=== PATIENT | female | born 1990 | race Caucasian/White ===

== ENCOUNTER 2022-10-29 10:26 | Inpatient (IN) | payer BC, SELFPAY ==
[2022-10-29 11:02] VITALS: BP 130/91; PULSE 95; RESP 18; TEMP 37; O2SAT 100
[2022-10-29 11:03] VITALS: BMI 26.5
[2022-10-29] MEDS: acetaminophen 325 mg Tablet 650 MG PO ×2 (11:43→16:54)
[2022-10-29] MEDS: hyDROXYzine 25 mg Capsule 50 MG PO ×2 (11:43→16:54)
[2022-10-29 14:00] VITALS: BP 118/81; PULSE 86; RESP 16; TEMP 36.8; O2SAT 98
[2022-10-29] MEDS: OLANZapine 5 mg ODT PO ×2 (16:54→23:22)
[2022-10-29] MEDS: gabapentin 300 mg Capsule PO (17:44)
[2022-10-29 20:07] VITALS: BP 126/84; PULSE 106; RESP 18; TEMP 36.8; O2SAT 100
[2022-10-29] MEDS: ibuprofen 600 mg Tablet PO (21:09)
[2022-10-29] MEDS: methocarbamol 500 mg Tablet PO (21:09)
--- NOTE | 2022-10-29 23:23 | PC.NURSE ---
Pt put director semiconductor light stating I'm seeing people climbing out of the ceiling . Pt requests medication to help with hallucinations. PRN zyprexa administered per orders.
[2022-10-30] MEDS: ibuprofen 600 mg Tablet PO (04:48)
[2022-10-30] MEDS: methocarbamol 500 mg Tablet PO ×2 (04:48→15:57)
[2022-10-30 06:00] VITALS: BP 121/84; PULSE 84; RESP 15; O2SAT 100
[2022-10-30] MEDS: thiamine 100 mg Tablet PO (09:01)
[2022-10-30] MEDS: gabapentin 300 mg Capsule PO ×2 (09:01→17:13)
[2022-10-30] MEDS: folic acid 1 mg Tablet PO (09:02)
[2022-10-30] MEDS: pantoprazole DR 40 mg Tablet PO (09:02)
[2022-10-30] MEDS: fluoxetine 20 mg Capsule PO (09:02)
[2022-10-30] MEDS: amlodipine 5 mg Tablet PO (09:02)
[2022-10-30] MEDS: multivitamin therapeutic Tablet 1 TAB PO (09:03)
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
[2022-10-30 10:12] LABS: Hematocrit 35.8 % (37.0-47.0); Hemoglobin 12.6 g/dL (11.5-15.3); Mean Corpuscular HGB Conc 35.2 g/dL (30.0-36.0); Mean Corpuscular Hemoglobin 30.4 pg (28.0-34.0); Mean Corpuscular Volume 86.5 fl (81-99); Mean Platelet Volume 10.5 fL (7.4-10.4); Platelet Count 251 10^3/cmm (130-400); Red Blood Count 4.14 10^6/uL (4.1-5.3); Red Cell Distribution Width 13.3 % (12.1-15.1); White Blood Count 7.2 10^3/uL (4.0-10.0)
[2022-10-30 10:36] LABS: Alanine Aminotransferase 13 U/L (0-33); Albumin Level 4.3 g/dL (3.5-5.2); Alkaline Phosphatase 46 U/L (35-105); Amylase 24 U/L (28-100); Anion Gap 17.3 (5-19); Aspartate Amino Transferase 14 U/L (0-32); Blood Urea Nitrogen 16 mg/dL (6-20); Calcium 9.4 mg/dL (8.5-10.5); Carbon Dioxide 26 mmol/L (22-29); Chloride 101 mmol/L (98-107); Globulin 1.9 g/dL (1.3-4.6); Glomerular Filtration Rate 98.3 mL/min (90-130); Glucose 119 mg/dL (65-115); Lipase 20 U/L (13-60); Osmolality Calculated 294 mOsm/kg (285-295); Potassium 3.3 mmol/L (3.5-5.1); Sodium 141 mmol/L (136-145); Total Bilirubin 0.5 mg/dL (0.15-1.2); Total Protein 6.2 g/dL (6.6-8.7)
[2022-10-30 10:48] LABS: Absolute Eosinophils 0.2 10^3/cmm (0.0-0.7); Absolute Neutrophil 4.3 10^3/cmm (1.4-6.5); Absolute Segmented Neutrophil 4.3 10/cmm (1.6-7.1); Eosinophils 3 %; Lymphocytes 31 %; Lymphocytes Absolute 2.2 10^3/cmm (1.2-3.4); Monocytes Absolute 0.4 10^3/cmm (0.1-0.6); Platelet Estimate Normal (Normal); Segmented Neutrophils 60 %; Total Cells Counted 100 (0-100)
[2022-10-30] MEDS: escitalopram 10 mg Tablet PO (12:01)
[2022-10-30] MEDS: nicotine 2 mg Gum BUCCAL (13:36)
[2022-10-30] MEDS: OLANZapine 5 mg ODT PO (13:36)
[2022-10-30 13:54] VITALS: BP 135/104; PULSE 90; RESP 18; TEMP 36.9; O2SAT 99
[2022-10-30] MEDS: hyDROXYzine 25 mg Capsule 50 MG PO (15:57)
[2022-10-30] MEDS: nicotine 4 mg lozenge MUCOUS MEM (17:32)
[2022-10-30] MEDS: trazodone 50 mg Tablet PO ×2 (20:03→21:14)
[2022-10-30 20:13] VITALS: BP 125/81; PULSE 78; RESP 16; TEMP 36.7; O2SAT 99
[2022-10-31] MEDS: methocarbamol 500 mg Tablet PO ×3 (00:29→12:36)
[2022-10-31] MEDS: hyDROXYzine 25 mg Capsule 50 MG PO ×2 (00:29→08:58)
[2022-10-31] MEDS: ibuprofen 600 mg Tablet PO ×3 (00:29→12:36)
[2022-10-31] MEDS: acetaminophen 325 mg Tablet 650 MG PO ×2 (01:50→08:57)
--- NOTE | 2022-10-31 01:58 | PC.NURSE ---
Pt con't to c/o worsening abd pain at this time. PRN apap administered d/t pt already receiving ibu and robaxin earlier, and it is not time for administration yet. Pt referred to physician for request of stronger pain medication. Awaiting orders. WMP administered to assist w/pain relief.
[2022-10-31 06:00] VITALS: BP 120/90; PULSE 78; RESP 17; O2SAT 99
--- NOTE | 2022-10-31 07:12 | P.NPUPN_ITS ---
Subjective NPU Subjective: Patient presented today reporting that he is doing a little better with the Lexapro. She reports she is having some pain issues but reported that she is hopeful that when he stopped his oxycodone in couple of days that it will help. She reports a plan to go to a rehab after discharge. We discussed bringing that to the social work team's attention so that they assist in a easy transition to inpatient rehab. Mental Status Exam MSE Comments: This is a well-nourished well-developed white female, in hospital scrubs, with limited grooming and adequate eye contact. No abnormal movements, except for mild psychomotor retardation. Cooperative with exam in mild distress. Speech was normal rate and volume. Mood described as depressed; affect congruent. Thought process, organized. Thought content: patient denied any suicidal or homicidal ideation, there were no delusions reported or noted, patient denied any auditory or visual hallucinations. Attention, concentration, and memory appeared intact, but none were formally tested. Alert and oriented times three. Insight and judgment are limited. Impulse control is limited. Vitals/I&O/Wt Last Vital Signs Temp 98.1 F 10/30/22 20:13 Pulse 78 10/31/22 06:00 Resp 17 10/31/22 06:00 BP 120/90 10/31/22 06:00 Pulse Ox 99 10/31/22 06:00 O2 Del Method Room Air 10/31/22 06:00 Weight last 48 hrs Weight 65.771 kg Data NPU 10/30/22 10:00 10/30/22 10:00 A&P Assessment and plan (1) Major depressive disorder, recurrent: (2) Alcohol use disorder, severe, dependence: (3) Opioid use disorder, severe, dependence: Plan This is a 32-year-old, white female, with genetic loading for mental health and addiction issues, with a long history of mental health issues with limited mental health treatment, active drug and alcohol issues with history of significant alcohol use disorder and other addiction current active opiate addiction but reportedly 4 days sober here because of suicidal thoughts, reporting she is open to starting medication. 1. Continue current medication. 2. Started Lexapro 10 mg p.o. daily. 3. Encourage individual, group, and milieu therapy. 4. Continue q-15-minute checks for safety. 5. Encourage sober living treatment after discharge at the highest level of care to which she is willing to commit. We will consider inelke tiating Suboxone in 2 days or so if she is still interested for opiate addiction as that will put her at the seventh day of sobriety. Involuntary Hold Information 96 Hour Hold: 96 Hour Involuntary Admission: No Attestations NPU Medical Necessity Statement*: Inpatient hospitalization is medically necessary and the clinically appropriate intervention, at this time. We will monitor medications and make changes as indicated. Likely length of stay is 2-4 days. Coding Level of Care Code Acute Code for g [facility] Diagnoses Major depressive disorder, recurrent F33.9 Alcohol use disorder, severe, dependence F10.20 Opioid use disorder, severe, dependence F11.20
[2022-10-31] MEDS: nicotine 21 mg Patch 1 PATCH TRANSDERMA (07:18)
[2022-10-31] MEDS: pantoprazole DR 40 mg Tablet PO (08:31)
[2022-10-31] MEDS: multivitamin therapeutic Tablet 1 TAB PO (08:31)
[2022-10-31] MEDS: escitalopram 10 mg Tablet PO (08:31)
[2022-10-31] MEDS: fluoxetine 20 mg Capsule PO (08:31)
[2022-10-31] MEDS: thiamine 100 mg Tablet PO (08:32)
[2022-10-31] MEDS: amlodipine 5 mg Tablet PO (08:32)
[2022-10-31] MEDS: gabapentin 300 mg Capsule PO ×2 (08:32→17:57)
[2022-10-31] MEDS: folic acid 1 mg Tablet PO (08:32)
[2022-10-31] MEDS: OLANZapine 5 mg ODT PO ×3 (08:58→23:31)
[2022-10-31] MEDS: ondansetron 4 MG Tablet PO (08:58)
[2022-10-31 14:00] VITALS: BP 116/80; PULSE 88; RESP 16; TEMP 36.7; O2SAT 98
[2022-10-31] MEDS: haloperidol 5 mg Tablet PO (15:07)
[2022-10-31 19:28] VITALS: BP 133/91; PULSE 90; RESP 18; TEMP 36.9; O2SAT 97
[2022-10-31] MEDS: trazodone 50 mg Tablet PO (20:41)
[2022-10-31] MEDS: sennosides 8.6 mg Tablet 17.2 MG PO (20:41)
[2022-11-01] MEDS: haloperidol 5 mg Tablet PO (02:15)
[2022-11-01] MEDS: trazodone 50 mg Tablet PO ×2 (03:11→20:37)
[2022-11-01 06:00] VITALS: BP 122/83; PULSE 90; RESP 16; TEMP 36.8; O2SAT 99
[2022-11-01] MEDS: fluoxetine 20 mg Capsule PO (07:47)
[2022-11-01] MEDS: gabapentin 300 mg Capsule PO ×2 (07:47→20:37)
[2022-11-01] MEDS: methocarbamol 500 mg Tablet PO ×2 (07:47→14:40)
[2022-11-01] MEDS: escitalopram 10 mg Tablet PO (07:47)
[2022-11-01] MEDS: pantoprazole DR 40 mg Tablet PO (07:48)
[2022-11-01] MEDS: multivitamin therapeutic Tablet 1 TAB PO (07:48)
[2022-11-01] MEDS: amlodipine 5 mg Tablet PO (07:48)
[2022-11-01] MEDS: folic acid 1 mg Tablet PO (07:48)
[2022-11-01] MEDS: thiamine 100 mg Tablet PO (07:49)
--- NOTE | 2022-11-01 07:55 | PC.NURSE ---
PRN ROBAXIN 500 MG GIVEN PO PER PT C/O SPASMS
--- NOTE | 2022-11-01 07:55 | PC.NURSE ---
SHIFT ASSESSMENT STATED SHE IS HEARING AND SEEING THINGS, IT GETS WORSE WHEN I'M DETOXING DOES NOT APPEAR TO BE RESPONDING TO ANY INTERNAL STIMULI AT THIS TIME, CALM & PLEASANT WITH STAFF INTERACTION, WANTS TO SPEAK TO PHYSICIAN ABOUT GETTING MORE SLEEP MEDS BECAUSE SHE STATED THE TRAZODONE ONLY WORKS FOR A FEW HOURS THEN SHE'S AWAKE AGAIN MOST OF THE NIGHT.
[2022-11-01] MEDS: hyDROXYzine 25 mg Capsule 50 MG PO ×3 (08:38→20:37)
[2022-11-01] MEDS: nicotine 21 mg Patch 1 PATCH TRANSDERMA (08:38)
--- NOTE | 2022-11-01 08:40 | PC.NURSE ---
PRN VISTARIL 50 MG GIVEN PO PER PT C/O STATED ANXIETY
--- NOTE | 2022-11-01 12:51 | P.NPUPN_ITS ---
Subjective NPU Subjective: Sherry is a 32-year-old white female with alcohol dependence and opiate dependence along with depression admitted with suicidal ideation and command auditory hallucinations. She continues to report that she is hearing voices. She also reported seeing ghosts out of the corner of her eye. She reported having the symptoms for the past few weeks. She had reported a greater than 10- year use of opiates but reports that the use of opiates had really been magnified over the past 3 years that she begun to use OxyContin's intranasally. She had reported being hopeful about going to a rehabilitation facility as well. She reported no previous history of treatment for her alcohol use either and stated that she had been drinking approximately 2 pints of alcohol on a daily basis. She did not report any withdrawal symptoms here from alcohol. She had reported that she continued to have suicidal thoughts. She had also reported that she could continue to to see demons in her room at night. She had reported sleep continuity disruption last night. Mental Status Exam MSE Comments: This is a well-nourished well-developed white female, in hospital scrubs, with limited grooming and adequate eye contact. No abnormal movements, except for mild psychomotor retardation. Cooperative with exam in mild distress. Speech was normal rate and volume. Mood described as depressed; affect congruent. Thought process, organized. Thought content: She endorsed suicidal ideation and denied any homicidal ideation. She had endorsed hearing a voice and seeing ghosts but did not during interview appear to be responding internal stimuli. There is no clear evidence of delusional thinking. Attention, concentration, and memory appeared intact, but none were formally tested. Alert and oriented times three. Insight and judgment are limited. Impulse control is limited. Vitals/I&O/Wt Last Vital Signs Temp 98.3 F 11/01/22 06:00 Pulse 90 11/01/22 06:00 Resp 16 11/01/22 06:00 BP 122/83 11/01/22 06:00 Pulse Ox 99 11/01/22 06:00 O2 Del Method Room Air 10/31/22 06:00 Weight last 48 hrs Weight 70.216 kg Data NPU 10/30/22 10:00 10/30/22 10:00 A&P Assessment and plan (1) Major depressive disorder, recurrent: (2) Alcohol use disorder, severe, dependence: (3) Opioid use disorder, severe, dependence: Plan This is a 32-year-old, white female, with genetic loading for mental health and addiction issues, with a long history of mental health issues with limited mental health treatment, active drug and alcohol issues with history of significant alcohol use disorder and other addiction current active opiate addiction but reportedly 4 days sober here because of suicidal thoughts, reporting she is open to starting medication. 1. Continue current medication. 2. Continue Lexapro 10 mg p.o. daily. 3. Encourage individual, group, and milieu therapy. 4. Continue q-15-minute checks for safety. 5. Encourage sober living treatment after discharge at the highest level of care to which she is willing to commit. Add Suboxone 8mg/day, and begin Abilify 5mg daily to target psychosis as adjunctively for MDD. Involuntary Hold Information 96 Hour Hold: 96 Hour Involuntary Admission: No Attestations NPU Medical Necessity Statement*: Inpatient hospitalization is medically necessary and the clinically appropriate intervention, at this time. We will monitor medications and make changes as indicated. Likely length of stay is 3-5 days. Coding Level of Care Code Acute Code for [facility] Fwd Diagnoses Major depressive disorder, recurrent F33.9 Alcohol use disorder, severe, dependence F10.20 Opioid use disorder, severe, dependence F11.20
[2022-11-01] MEDS: ARIPiprazole 2 mg Tablet PO (13:06)
[2022-11-01 13:51] VITALS: BP 132/87; PULSE 90; RESP 17; TEMP 36.4; O2SAT 99
[2022-11-01] MEDS: acetaminophen 325 mg Tablet 650 MG PO (18:12)
[2022-11-01] MEDS: sennosides 8.6 mg Tablet 17.2 MG PO (20:37)
[2022-11-01] MEDS: buprenorphine-naloxone 4-1 mg Film 1 EACH SUBLINGUAL (20:37)
[2022-11-01 21:53] VITALS: BP 138/93; PULSE 90; RESP 18; TEMP 36.4; O2SAT 97
--- NOTE | 2022-11-02 02:15 | PC.NURSE ---
PT CAME TO DESK STATING SHE HAS NOT URINATED ALL DAY. THIS NURSE BLADDER SCANNED PT WITH THE RESULT OF 334ML SHOWN. PT GIVEN A URINE SPECIMEN CUP AND ASKED THAT WHEN SHE DOES FINALLY GO, TO GIVE US A SAMPLE SO WE CAN TEST FOR A UTI. PT CONSENTED.
[2022-11-02] MEDS: hyDROXYzine 25 mg Capsule 50 MG PO ×2 (04:06→13:36)
--- NOTE | 2022-11-02 04:12 | PC.NURSE ---
PT CAME TO DESK STATING I STILL CAN'T PEE AND IT'S STARTING TO REALLY HURT . ATTEMPT TO CALL DR ALFONSO TO GET AN ORDER FOR STRAIGHT CATH NOT SUCCESSFUL. CALL PLACED TO HOSPITALIST GRAPHIC DESIGN SPECIALIST, DR WLASH. ORDER FOR A ONE TIME STRAIGHT CATH ORDER RECEIVED.
--- NOTE | 2022-11-02 04:57 | PC.NURSE ---
THIS NURSE AND Martín RN, USING ASEPTIC TECHNIQUE, USING 16GAGE MONACO CATH, STRAIGHT CATHED THIS PT WITHOUT DIFFICULTY. 775ML CLEAR URINE WAS OBTAINED. UA SPECIMEN SENT TO LAB.
[2022-11-02 04:58] LABS: Add Urine Microscopic? NO; Bilirubin Urine Neg (Negative); Blood Urine Neg (Negative); Glucose Urine UA Norm (Normal); Ketones Urine Negative (Negative); Leukocyte Esterase Urine Negative (Negative); Nitrate Urine Negative (Negative); Protein Urine Neg (Negative); Urine Appearance Clear (CLEAR); Urine Color Yellow (Yellow); Urobilinogen Urine Norm (Negative); pH Urine 7 (5-7)
[2022-11-02 05:00] LABS: Charge for UA Resulting for Rev
[2022-11-02 06:00] VITALS: RESP 16
[2022-11-02] MEDS: nicotine 21 mg Patch 1 PATCH TRANSDERMA (08:27)
[2022-11-02] MEDS: gabapentin 300 mg Capsule PO ×2 (08:28→20:26)
[2022-11-02] MEDS: amlodipine 5 mg Tablet PO (08:28)
[2022-11-02] MEDS: ARIPiprazole 2 mg Tablet PO (08:28)
[2022-11-02] MEDS: methocarbamol 500 mg Tablet PO ×2 (08:28→20:28)
[2022-11-02] MEDS: folic acid 1 mg Tablet PO (08:28)
[2022-11-02] MEDS: buprenorphine-naloxone 4-1 mg Film 1 EACH SUBLINGUAL (08:29)
[2022-11-02] MEDS: thiamine 100 mg Tablet PO (08:29)
[2022-11-02] MEDS: multivitamin therapeutic Tablet 1 TAB PO (08:29)
[2022-11-02] MEDS: fluoxetine 20 mg Capsule PO (08:29)
[2022-11-02] MEDS: pantoprazole DR 40 mg Tablet PO (08:29)
[2022-11-02] MEDS: escitalopram 10 mg Tablet PO (08:29)
--- NOTE | 2022-11-02 08:47 | PC.NURSE ---
bladder scan 204 ml urine from scan, pt voiced she is still having hesitancy urinating. will cont to monitor & alert physician
--- NOTE | 2022-11-02 09:10 | PC.NURSE ---
shift assessment stated she was having thoughts of self harm, no plan, stated she also having hallucinations off and on, but they aren't as bad as they usually are pleasant with staff interaction, med compliant. staff educated patient that she would be checked on every 15 minutes or less while staff did mandatory rounding, alerted patient to let nursing staff know if her thoughts to self harm increased or she came up with a plan on how to harm herself so staff could intervene. patient agreed to contract for safety
--- NOTE | 2022-11-02 12:04 | W.PM.NPUPNS ---
Subjective NPU Subjective: Sherry is a 32-year-old white female with alcohol dependence and opiate dependence along with depression admitted with suicidal ideation and command auditory hallucinations. The patient had complained of severe urinary retention that required catheterization which produced 750 mL of urine. She had reported having urinary urgency but stated that she was unable to urinate. She had also complained of chronic constipation. She had reported having a small bowel movement yesterday. She continues to report that she is seeing ghosts. She reported having the symptoms for the past few weeks. She reported feeling better with the initiation of Suboxone. She had continue to report depressed mood. She had stated that she had hopes of going to a rehabilitation program when stabilized. Staff notes patient was pleasant and cooperative on the milieu. Mental Status Exam MSE Comments: This is a well-nourished well-developed white female, in hospital scrubs, with limited grooming and adequate eye contact. No abnormal movements, except for mild psychomotor retardation. Cooperative with exam in significant distress. Speech was normal rate and volume. Mood described as depressed; affect congruent. Thought process, organized. Thought content: She endorsed suicidal ideation and denied any homicidal ideation. She had endorsed seeing ghosts but did not during interview appear to be responding internal stimuli. There is no clear evidence of delusional thinking. Attention, concentration, and memory appeared intact, but none were formally tested. Alert and oriented times three. Insight and judgment are limited. Impulse control is limited. Vitals/I&O/Wt Last Vital Signs Temp 97.6 F 11/01/22 21:53 Pulse 90 11/01/22 21:53 Resp 16 11/02/22 06:00 BP 138/93 11/01/22 21:53 Pulse Ox 97 11/01/22 21:53 O2 Del Method Room Air 11/01/22 21:53 Weight last 48 hrs Weight 70.216 kg Data NPU 10/30/22 10:00 10/30/22 10:00 A&P Assessment and plan (1) Major depressive disorder, recurrent: (2) Alcohol use disorder, severe, dependence: (3) Opioid use disorder, severe, dependence: Plan This is a 32-year-old, white female, with genetic loading for mental health and addiction issues, with a long history of mental health issues with limited mental health treatment, active drug and alcohol issues with history of significant alcohol use disorder and other addiction current active opiate addiction but reportedly 4 days sober here because of suicidal thoughts, reporting she is open to starting medication. 1. Continue Abilify 2mg daily, consult medicine after completion of KUB, as constipation may be cause of urinary retention. Catherization to relieve urinary retention. 2. Continue Lexapro 10 mg p.o. daily. 3. Encourage individual, group, and milieu therapy. 4. Continue q-15-minute checks for safety. 5. Encourage sober living treatment after discharge at the highest level of care to which she is willing to commit. Continue Suboxone 8mg/day, and continue Abilify 2mg daily to target psychosis as adjunctively for MDD. Involuntary Hold Information 96 Hour Hold: 96 Hour Involuntary Admission: No Attestations NPU Medical Necessity Statement*: Inpatient hospitalization is medically necessary and the clinically appropriate intervention, at this time. We will monitor medications and make changes as indicated. Likely length of stay is 3-5 days. Coding Level of Care Code Acute Code for [facility] Fwd Diagnoses Major depressive disorder, recurrent F33.9 Alcohol use disorder, severe, dependence F10.20 Opioid use disorder, severe, dependence F11.20
--- NOTE | 2022-11-02 12:07 | XRR_ITS ---
PROCEDURE INFORMATION: Exam: XR Abdomen Exam date and time: 11/02/2022 1:05 PM Age: 32 years old Clinical indication: Condition or disease; Kidney or ureter condition; Other: Urinary retention; Prior surgery; Surgery date: 6+ months; Surgery type: Choley TECHNIQUE: Imaging protocol: Radiologic exam of the abdomen. Views: Frontal supine view of the abdomen. 1 View. COMPARISON: No relevant prior studies available. FINDINGS: Gastrointestinal tract: Moderate fecal burden. No bowel dilation. Bones/joints: Unremarkable. XR/XR KUB portable [id number] IMPRESSION: No acute findings.
[2022-11-02 12:48] LABS: HCG Qualitative Urine. Negative (Negative)
--- NOTE | 2022-11-02 13:37 | PC.NURSE ---
PRN VISTARIL 50 MG GIVEN PO PER PT C/O STATED ANXIETY
[2022-11-02 14:00] VITALS: BP 117/73; PULSE 80; RESP 16; TEMP 36.6; O2SAT 99
[2022-11-02] MEDS: lactulose oral liq 20 gm/30 mL UDC PO ×4 (16:18→23:52)
--- NOTE | 2022-11-02 16:44 | PC.NURSE ---
BLADDER SCAN DONE PER PT REQUEST, [address] SANTOS NOTIFIED, NO NEW ORDERS CURRENTLY
[2022-11-02] MEDS: ibuprofen 600 mg Tablet PO (17:50)
--- NOTE | 2022-11-02 18:01 | PC.NURSE ---
voiced to staff she was able to pee a little had a big smile on her face, said she felt some relief after urinating
[2022-11-02 20:08] VITALS: BP 107/71; PULSE 82; RESP 18; TEMP 36.7; O2SAT 99
[2022-11-02] MEDS: trazodone 50 mg Tablet PO (20:26)
[2022-11-02] MEDS: sennosides 8.6 mg Tablet 17.2 MG PO (20:26)
[2022-11-03] MEDS: lactulose oral liq 20 gm/30 mL UDC PO ×2 (03:12→06:32)
--- NOTE | 2022-11-03 03:31 | PC.NURSE ---
PT CAME TO DESK REPORTING NOT BEING ABLE TO URINATE. DR ALFONSO CALLED, ONE TIME ORDER FOR BLADDER SCAN AND STRAIGHT CATH NOW. BLADDER SCAN RESULTED IN 519ML. AFTER HAND SANITIZING, THIS NURSE, USING ASEPTIC TECHNIQUE, PT WAS STRAIGHT CATHED WITH APPROXIMATELY 750ML OF YELLOW URINE OBTAINED WITHOUT DIFFICULTY USING A 14FR TANK RED CATHETER. PT TOLERATED PROCEDURE WELL, STATING FEELING MUCH RELIEF AND LESS PRESSURE.
[2022-11-03 06:00] VITALS: BP 131/92; PULSE 90; RESP 16; TEMP 36.8; O2SAT 100
--- NOTE | 2022-11-03 08:04 | PC.NURSE ---
PT STRAIGHT CATHED ON 11/02/22 AT 1330. ONE ATTEMPT WAS MADE. OUTPUT WAS 375ML.
[2022-11-03] MEDS: methocarbamol 500 mg Tablet PO ×2 (08:54→20:13)
[2022-11-03] MEDS: escitalopram 10 mg Tablet PO (08:54)
[2022-11-03] MEDS: gabapentin 300 mg Capsule PO ×2 (08:54→20:13)
[2022-11-03] MEDS: multivitamin therapeutic Tablet 1 TAB PO (08:54)
[2022-11-03] MEDS: amlodipine 5 mg Tablet PO (08:54)
[2022-11-03] MEDS: thiamine 100 mg Tablet PO (08:54)
[2022-11-03] MEDS: folic acid 1 mg Tablet PO (08:54)
[2022-11-03] MEDS: pantoprazole DR 40 mg Tablet PO (08:54)
[2022-11-03] MEDS: nicotine 21 mg Patch 1 PATCH TRANSDERMA (08:55)
[2022-11-03] MEDS: hyDROXYzine 25 mg Capsule 50 MG PO ×3 (08:57→20:13)
[2022-11-03] MEDS: tamsulosin 0.4 mg Capsule PO (10:31)
--- NOTE | 2022-11-03 13:40 | P.CONIM_ITS ---
Providers/Reason For Consult Consulting Physician/Specialty*: Frase/Hosptialist Reason for Consult*: urinary retention Requesting Physician: Dr Zamora Attending Physician: James Moore MD History of Present Illness History of Present Illness Sherry Rodriguez is a 32 year old female admitted to the neuro psychiatric unit on October 30. She had had depression associated with suicidal ideation related in part secondary to substance use. She has a history of irritable bowel syndrome, chronically associated with diarrhea. She had cholecystectomy at [facility] in [place] on October 20. After surgery she had more diarrhea than usual and this continued up until the time she presented here. She started to have issues with constipation and subsequently ox so developed urinary retention. She has had 3 episodes of bladder scanning leading to straight catheterization and Parsons catheter was maintained after that third time. She had 2 episodes of approximately a liter of urinary retention with the most recent being around 450 mL urinary retention. She received 1 dose of Flomax and hospitalist were called for consultation due to the urinary retention. She had brief sensation of pain with urinating prior to the onset of urinary retention and has been uncomfortable since then because of the retention. No fevers. No nausea or vomiting. She has some abdominal discomfort and noticed a knot-like area in the right of the suprapubic region. She has had laxatives today including lactulose and had large-volume more formed stool several times. Feels like she is lost several pounds. She has never had issues with urinary retention before. Only new medications beyond some as needed's this hospital stay included initiation of Suboxone and Abilify. Both had been given x2 doses at lower range dosing. Menstrual periods are irregular, occuring every 3-4 months at baseline. Taking OCPs. Had a negative test at outside hospital prior to admission here. Had appropriate postoperative pain after cholecystectomy. Last hysteroscopy was in September of this year. No complaints of difficulty breathing. Review of Systems General: Reports: Other (ROS as per HPI or as noted here) Medications/Allergies Home Medications Medication Instructions Recorded Confirmed Last Taken Type amlodipine 5 mg tablet 5 mg PO DAILY 10/29/22 10/29/22 Unknown History fluoxetine 20 mg capsule 20 mg PO DAILY 10/29/22 10/29/22 Unknown History gabapentin 300 mg capsule 300 mg PO BID 10/29/22 10/29/22 Unknown History letrozole 2.5 mg tablet 2.5 mg PO DAILY 10/29/22 10/29/22 Unknown History methocarbamol 500 mg tablet 500 mg PO Q6H PRN Muscle Spasticity 10/29/22 10/29/22 Unknown History omeprazole 20 mg capsule,delayed 20 mg PO DAILY 10/29/22 10/29/22 Unknown History release Allergies Allergy/AdvReac Type Severity Reaction Status Date / Time No Known Allergies Allergy Verified 10/29/22 11:23 Current Medications Generic Name Dose Route Start Last Admin Trade Name Saadia PRN Reason Stop Dose Admin Acetaminophen 650 mg 10/29/22 11:01 11/01/22 18:12 Acetaminophen 325 Mg Tablet PO 650 mg Q4H PRN Administration MILD PAIN Amlodipine Besylate 5 mg 10/30/22 09:00 11/03/22 08:54 Amlodipine 5 Mg Tablet PO 5 mg DAILY SILVINA Administration Aripiprazole 2 mg 11/01/22 13:00 11/02/22 08:28 Aripiprazole 2 Mg Tablet PO 2 mg DAILY SILVINA Administration Buprenorphine/Naloxone 1 each 11/01/22 21:00 11/02/22 08:29 Buprenorphine-Naloxone 4-1 Mg Film SUBLINGUAL 1 each BID@0900,2100 SILVINA Administration Escitalopram Oxalate 10 mg 10/30/22 11:30 11/03/22 08:54 Escitalopram 10 Mg Tablet PO 10 mg DAILY SILVINA Administration Folic Acid 1 mg 10/30/22 09:00 11/03/22 08:54 Folic Acid 1 Mg Tablet PO 1 mg DAILY SILVINA Administration Gabapentin 300 mg 11/01/22 21:00 11/03/22 08:54 Gabapentin 300 Mg Capsule PO 300 mg 0900,2100 SILVINA Administration Haloperidol 5 mg 10/29/22 11:01 11/01/22 02:15 Haloperidol 5 Mg Tablet PO 5 mg Q4H PRN Administration AGITATION Hydroxyzine Pamoate 50 mg 10/29/22 11:01 11/03/22 08:57 Hydroxyzine 25 Mg Capsule PO 50 mg Q6H PRN Administration ANXIETY Ibuprofen 600 mg 10/29/22 20:34 11/02/22 17:50 Ibuprofen 600 Mg Tablet PO 600 mg Q6H PRN Administration MODERATE PAIN Methocarbamol 500 mg 10/29/22 11:35 11/03/22 08:54 Methocarbamol 500 Mg Tablet PO 500 mg Q6H PRN Administration Muscle Spasticity Multivitamins Therapeutic 1 tab 10/30/22 09:00 11/03/22 08:54 Multivitamin Therapeutic Tablet PO 1 tab DAILY SILVINA Administration Nicotine 1 patch 10/29/22 11:01 11/03/22 08:55 Nicotine 21 Mg Patch TRANSDERMA 1 patch DAILY PRN Administration NICOTINE WITHDRAWAL Nicotine Polacrilex 2 mg 10/29/22 11:01 10/30/22 13:36 Nicotine 2 Mg Gum BUCCAL 2 mg Q2H PRN Administration NICOTINE WITHDRAWAL Nicotine Polacrilex 4 mg 10/30/22 17:14 10/30/22 17:32 Nicotine 4 Mg Lozenge MUCOUS MEM 4 mg Q2H PRN Administration NICOTINE CRAVINGS Non-Formulary Medication 2.5 mg 10/30/22 09:00 11/03/22 09:36 Letrozole PO Not Given DAILY SILVINA Olanzapine 5 mg 10/29/22 11:01 10/31/22 23:31 Olanzapine 5 Mg Odt PO 5 mg Q4H PRN Administration Agitation/Psychosis Ondansetron HCl 4 mg 10/29/22 11:01 10/31/22 08:58 Ondansetron 4 Mg Tablet PO 4 mg Q6H PRN Administration NAUSEA AND VOMITING Pantoprazole Sodium 40 mg 10/30/22 09:00 11/03/22 08:[address] 40 Mg Tablet PO 40 mg DAILY SILVINA Administration Senna 17.2 mg 10/31/22 21:00 11/02/22 20:26 Sennosides 8.6 Mg Tablet PO 17.2 mg BEDTIME SILVINA Administration Thiamine Mononitrate 100 mg 10/30/22 09:00 11/03/22 08:54 Thiamine 100 Mg Tablet PO 100 mg DAILY SILVINA Administration Trazodone HCl 50 mg 10/29/22 11:01 11/02/22 20:26 Trazodone 50 Mg Tablet PO 50 mg BEDTIME PRN Administration SLEEP PFSH Acute PFSH: Medical History (Updated 11/03/22 @ 16:54 by Pauline Hayward MD) ADHD Chronic pancreatitis Endometriosis Irritable bowel syndrome (IBS) With diarrhea PCOS (polycystic ovarian syndrome) Surgical History (Updated 11/03/22 @ 16:17 by Pauline Hayward MD) History of cholecystectomy (11/03/22) History of colonoscopy Age 20 History of hysteroscopy 09/2022, 09/2021 Family History (Updated 08/01/23 @ 16:16 by Pauline Hayward MD) Grandmother Colon cancer, Onset Age: 60 Social History (Updated 11/03/22 @ 16:23 by Pauline Hayward MD) Smoking and tobacco status: current every day smoker e-cigarettes E-Cigarette Details: vaporizer device and with nicotine Alcohol intake: current Substance/Drug Use: current Female Reproductive History: Date of last menstrual period: 09/19/22 Vitals/I&O/Wt Last Vital Signs Temp 98.3 F 11/03/22 06:00 Pulse 90 11/03/22 06:00 Resp 16 11/03/22 06:00 BP 131/92 11/03/22 06:00 Pulse Ox 100 11/03/22 06:00 O2 Del Method Room Air 11/02/22 14:00 Physical Exam Narrative: Patient is awake and alert, able to provide history. Oriented to person, place and situation. Cooperative. Normocephalic. Extraocular movements are intact. Moist mucous membranes. Lungs are clear. Regular rhythm. Abdomen is soft, positive bowel sounds and palpable moving gas. Nontender to palpation in all 4 quadrants. Healing cholecystectomy scars noted in the epigastric area within the tattoo, right flank within a tattoo and above and around the umbilicus. I am unable to palpate the mass that she thought she felt earlier. Bladder is not full. Catheter is intact with leg bag and yellow urine noted. No pitting edema. No involuntary movements appreciated. Speech clear. Keeps toes pointed down (used to dance), no foot drop. Data 10/30/22 10:00 10/30/22 10:00 Other Labs: Radiology Impressions KUB X-Ray 11/02/22 12:07 IMPRESSION: No acute findings. Laboratory Results WBC 7.2 10^3/uL (4.0-10.0) 10/30/22 10:00 RBC 4.14 10^6/uL (4.1-5.3) 10/30/22 10:00 Hgb 12.6 g/dL (11.5-15.3) 10/30/22 10:00 Hct 35.8 % (37.0-47.0) L 10/30/22 10:00 MCV 86.5 fl (81-99) 10/30/22 10:00 MCH 30.4 pg (28.0-34.0) 10/30/22 10:00 MCHC 35.2 g/dL (30.0-36.0) 10/30/22 10:00 RDW 13.3 % (12.1-15.1) 10/30/22 10:00 Plt Count 251 10^3/cmm (130-400) 10/30/22 10:00 MPV 10.5 fL (7.4-10.4) H 10/30/22 10:00 Total Counted 100 (0-100) 10/30/22 10:00 Atypical Lymphs % 0.0 % (0-5) 10/30/22 10:00 Absolute Neutrophils 4.3 10^3/cmm (1.4-6.5) 10/30/22 10:00 Segmented Neutrophils 60 % 10/30/22 10:00 Abs Segm Neuts (Man) 4.3 10/cmm (1.6-7.1) 10/30/22 10:00 Band Neutrophils 0.0 % 10/30/22 10:00 Abs Band Neuts (Man) 0.0 10^3/cmm (0.0-1.2) 10/30/22 10:00 Absolute Lymphocytes 2.2 10^3/cmm (1.2-3.4) 10/30/22 10:00 Lymphocytes (Manual) 31 % 10/30/22 10:00 Monocytes (Manual) 6.0 % 10/30/22 10:00 Absolute Monocytes 0.4 10^3/cmm (0.1-0.6) 10/30/22 10:00 Eosinophils (Manual) 3 % 10/30/22 10:00 Absolute Eosinophils 0.2 10^3/cmm (0.0-0.7) 10/30/22 10:00 Basophils (Manual) 0.0 % 10/30/22 10:00 Absolute Basophils 0.0 10^3/cmm (0.0-0.2) 10/30/22 10:00 Platelet Estimate Normal (Normal) 10/30/22 10:00 Sodium 141 mmol/L (136-145) 10/30/22 10:00 Potassium 3.3 mmol/L (3.5-5.1) L 10/30/22 10:00 Chloride 101 mmol/L (98-107) 10/30/22 10:00 Carbon Dioxide 26 mmol/L (22-29) 10/30/22 10:00 Anion Gap 17.3 (5-19) 10/30/22 10:00 BUN 16 mg/dL (6-20) 10/30/22 10:00 Creatinine 0.7 mg/dL (0.5-0.9) 10/30/22 10:00 GFR Calculation 98.3 mL/min (90-130) 10/30/22 10:00 Glucose 119 mg/dL (65-115) H 10/30/22 10:00 Calculated Osmolality 294 mOsm/kg (285-295) 10/30/22 10:00 Calcium 9.4 mg/dL (8.5-10.5) 10/30/22 10:00 Total Bilirubin 0.5 mg/dL (0.15-1.2) 10/30/22 10:00 AST 14 U/L (0-32) 10/30/22 10:00 ALT 13 U/L (0-33) 10/30/22 10:00 Alkaline Phosphatase 46 U/L (35-105) 10/30/22 10:00 Total Protein 6.2 g/dL (6.6-8.7) L 10/30/22 10:00 Albumin 4.3 g/dL (3.5-5.2) 10/30/22 10:00 Globulin 1.9 g/dL (1.3-4.6) 10/30/22 10:00 Amylase 24 U/L (28-100) L 10/30/22 10:00 Lipase 20 U/L (13-60) 10/30/22 10:00 HCG, Qual Negative (Negative) 11/02/22 04:37 Urine Color Yellow (Yellow) 11/02/22 04:37 Urine Appearance Clear (CLEAR) 11/02/22 04:37 Urine pH 7 (5-7) 11/02/22 04:37 Ur Specific [place] 1.000 (1.005-1.030) L 11/02/22 04:37 Urine Protein Neg (Negative) 11/02/22 04:37 Urine Glucose (UA) Norm (Normal) 11/02/22 04:37 Urine Ketones Negative (Negative) 11/02/22 04:37 Urine Blood Neg (Negative) 11/02/22 04:37 Urine Nitrate Negative (Negative) 11/02/22 04:37 Urine Bilirubin Neg (Negative) 11/02/22 04:37 Urine Urobilinogen Norm mg/dL (Negative) 11/02/22 04:37 Ur Leukocyte Esterase Negative (Negative) 11/02/22 04:37 Outside labs to note: Hgb 16, Cr 0.6, WBC 9, Na+ 142, K+3.8, Glu 108, alb 8.1, LFTS normal range, TSH 1.95, preg test neg, UA neg, Etoh 94, UDS neg, covid neg, EKG SR 96 A&P Assessment and plan (1) Acute urinary retention: Clinically seems like secondary to degree of constipation which is unusual for her. This has since improved with laxative therapy in particular lactulose. Constipation could be driven by lack of alcohol intake, effect of chronic opioids, decreased nicotine. Medication effect is also a possibility though current medications not classically associated with urinary retention. I asked pharmacy to review both home and inpatient medication list and primary culprit with a very low risk was amlodipine. I am not sure that Abilify and Suboxone are contributing factors in this situation. Given need for straight cath multiple times I concur with Parsons catheter placement as well as utilization of Flomax at this time. Recommendations: Continue Parsons catheter for 48 to 72 hours followed by a trial of voiding Hopefully at that time patient will be able to urinate without difficulty, if not will need to be instructed on intermittent self-catheterization and outpatient follow-up arranged with urology. If able to urinate should still follow-up with primary care provider closely to ensure adequate emptying of bladder and address length of time to maintain Flomax Continue Flomax at 0.4 mg daily currently Plans discussed with patient and she was given an opportunity to ask quesitons I will send a repeat UA Okay to resume Suboxone as discussed but would maintain Senokot S scheduled to avoid constipation contributing Stop amlodipine at this time as it looks like it may have been started in the month of October > can monitor blood pressure and consider alternative agent if necessary for blood pressure control (2) Irritable bowel syndrome (IBS): Usually with diarrhea, not on focused chronic treatment (3) PCOS (polycystic ovarian syndrome): Along with endometriosis, follows with [facility], on control pills but only recently started (4) Major depressive disorder, recurrent: Admitted with suicidal ideation, started on escitalopram along with Abilify here; had been on fluoxetine outpatient prior to admission (5) Alcohol use disorder, severe, dependence: And a history of chronic pancreatitis, in early abstinence (6) Opioid use disorder, severe, dependence: Started on Suboxone this hospital stay, had been on Percocets and [place]'s via prescription previously and was on gabapentin and methocarbamol at home as well Plan See recommendations above Thank you for consultation we will follow along while patient is here Coding Level of Care Code 13821 Moderate Time for a total of 60 minutes, includes reviewing past or interval history (Outside records), examining/interviewing patient, placing orders, counseling patient/family/other support, discussing plan of care with staff, communicating with other healthcare providers (Dr. Zamora) and documenting encounter Diagnoses Acute urinary retention R33.8 Irritable bowel syndrome (IBS) K58.9 PCOS (polycystic ovarian syndrome) E28.2 Major depressive disorder, recurrent F33.9 Alcohol use disorder, severe, dependence F10.20 Opioid use disorder, severe, dependence F11.20
[2022-11-03 14:00] VITALS: BP 130/82; PULSE 92; RESP 16; TEMP 36.7; O2SAT 97
--- NOTE | 2022-11-03 14:44 | P.NPUPN_ITS ---
Subjective NPU Subjective: Sherry is a 32-year-old white female with alcohol dependence and opiate dependence along with depression admitted with suicidal ideation and command auditory hallucinations. The patient continued to show evidence of prove movement in regards to her chronic constipation with significant bowel movements noted while beginning lactulose. The patient continued to have significant and severe urinary retention as she had been taken off of both Abilify and buprenorphine as possible causes of acute urinary retention. The patient had also complained of depression but stated that she was also hearing voices at this time. She had reported that she had also been seen things out of the corner of her eye but stated that it was less frequent. She had reported an extended history of depression. She had reported an extended history of low energy, low motivation, difficulties with concentration and some feelings of hopelessness. She had continued to isolate herself in her room. Mental Status Exam MSE Comments: This is a well-nourished well-developed white female, in hospital scrubs, with limited grooming and adequate eye contact. No abnormal movements, except for mild psychomotor retardation. Cooperative with exam in significant distress as she had complained of increased pressure in her bladder region. Speech was normal rate and volume. Mood described as depressed; affect congruent. Thought process, organized. Thought content: She endorsed suicidal ideation and denied any homicidal ideation. She had endorsed seeing ghosts but did not during interview appear to be responding internal stimuli. There is no clear evidence of delusional thinking. Attention, concentration, and memory appeared intact, but none were formally tested. Alert and oriented times three. Insight and judg ment are limited. Impulse control is limited. Vitals/I&O/Wt Last Vital Signs Temp 98.1 F 11/03/22 14:00 Pulse 92 11/03/22 14:00 Resp 16 11/03/22 14:00 BP 130/82 11/03/22 14:00 Pulse Ox 97 11/03/22 14:00 O2 Del Method Room Air 11/03/22 14:00 Data NPU 10/30/22 10:00 10/30/22 10:00 A&P Assessment and plan (1) Major depressive disorder, recurrent: (2) Alcohol use disorder, severe, dependence: (3) Opioid use disorder, severe, dependence: Plan This is a 32-year-old, white female, with genetic loading for mental health and addiction issues, with a long history of mental health issues with limited mental health treatment, active drug and alcohol issues with history of significant alcohol use disorder and other addiction current active opiate addiction but reportedly 4 days sober here because of suicidal thoughts, r eporting she is open to starting medication. 1. Consulted with the medical team who agreed to placement of a straight catheter while checking bladder scans for residual urine volume. The patient will remain off of Abilify and Suboxone at this time as it may take a few days for patient's to regain ability to urinate. Trial of Flomax .4mg to improve retention issues. 2. Continue Lexapro 10 mg p.o. daily. 3. Encourage individual, group, and milieu therapy. 4. Continue q-15-minute checks for safety. 5. Encourage sober living treatment after discharge at the [facility] level of care to which she is willing to commit. Hold on trial of antipsychotic to target psychosis due to urinary retention causes being unknown. Involuntary Hold Information 96 Hour Hold: 96 Hour Involuntary Admission: No Attestations NPU Medical Necessity Statement*: Inpatient hospitalization is medically necessary and the clinically appropriate intervention, at this time. We will monitor medications and make changes as indicated. Likely length of stay is 4-6 days. Coding Level of Care Code Acute Code for [facility] Diagnoses Major depressive disorder, recurrent F33.9 Alcohol use disorder, severe, dependence F10.20 Opioid use disorder, severe, dependence F11.20
[2022-11-03] MEDS: sennosides-docusate Tablet 2 TAB PO (17:14)
[2022-11-03 19:28] LABS: Urine Appearance Clear (CLEAR); Urine Color Yellow (Yellow); pH Urine 6.5 (5-7)
[2022-11-03 19:29] LABS: Add Urine Microscopic? YES; Bilirubin Urine Neg (Negative); Blood Urine 3+ (Negative); Glucose Urine UA Norm (Normal); Ketones Urine Negative (Negative); Leukocyte Esterase Urine 2+ (Negative); Nitrate Urine Negative (Negative); Protein Urine Neg (Negative); Urobilinogen Urine Norm (Negative)
[2022-11-03 19:30] LABS: Add Urine Culture? Yes; RBC Urine 40-50 /hpf (0-2); Squamous Epithelial Cell Urine 0-4 /hpf (0-5)
[2022-11-03] MEDS: trazodone 50 mg Tablet PO (20:13)
[2022-11-03 20:43] VITALS: BP 112/74; PULSE 98; RESP 18; TEMP 36.8; O2SAT 97
[2022-11-04] MEDS: OLANZapine 5 mg ODT PO ×3 (00:02→22:01)
[2022-11-04] MEDS: methocarbamol 500 mg Tablet PO ×3 (02:13→20:32)
[2022-11-04] MEDS: hyDROXYzine 25 mg Capsule 50 MG PO ×3 (02:16→20:32)
[2022-11-04 06:00] VITALS: BP 100/69; PULSE 78; RESP 16; O2SAT 100
--- NOTE | 2022-11-04 08:29 | PC.NURSE ---
[facility] NURSING STAFF CAME TO UNIT PREFORMED [employer]OP[employer]ER- HEARTRATE 150
[2022-11-04] MEDS: escitalopram 10 mg Tablet PO (08:41)
[2022-11-04] MEDS: folic acid 1 mg Tablet PO (08:41)
[2022-11-04] MEDS: gabapentin 300 mg Capsule PO ×2 (08:41→20:32)
[2022-11-04] MEDS: sennosides-docusate Tablet 2 TAB PO ×2 (08:41→17:38)
[2022-11-04] MEDS: tamsulosin 0.4 mg Capsule PO (08:41)
[2022-11-04] MEDS: thiamine 100 mg Tablet PO (08:41)
[2022-11-04] MEDS: pantoprazole DR 40 mg Tablet PO (08:41)
[2022-11-04] MEDS: multivitamin therapeutic Tablet 1 TAB PO (08:41)
[2022-11-04] MEDS: nicotine 21 mg Patch 1 PATCH TRANSDERMA (08:51)
--- NOTE | 2022-11-04 11:41 | PM.MISC ---
Miscellaneous Note Note: Will repeat UA after we remove Parsons catheter We will stop benztropine which can cause urinary tension with antimuscarinic effect I will follow along
[2022-11-04 14:00] VITALS: BP 127/74; PULSE 82; RESP 16; TEMP 36.4; O2SAT 99
--- NOTE | 2022-11-04 14:40 | W.PM.NPUPNS ---
Subjective NPU Subjective: Sherry is a 32-year-old white female with alcohol dependence and opiate dependence along with depression admitted with suicidal ideation and command auditory hallucinations. The patient continued to require presence of catheter due to an inability to urinate. The medical team was consulted and patient was placed on bowel protocol initiated had significant constipation issues that may have led to this problem with urinary retention. The patient was agreeable to restarting Suboxone today and continue to report seeing shadows but reported no suicidal thoughts at this time. She had expressed desire to enter into a substance abuse treatment facility near her home although it appeared that the patient was not accepted into to that facility. The patient had reported concern about the use of opiates long-term and had reported some cravings for opiates today. Mental Status Exam MSE Comments: This is a well-nourished well-developed white female, in hospital scrubs, with limited grooming and adequate eye contact. No abnormal movements, except for mild psychomotor retardation. Cooperative with exam in mild to moderate distress today. Speech was normal rate and volume. Mood described as depressed; affect was restricted in range and mood congruent. Thought process was organized. Thought content: She endorsed no suicidal ideation and denied any homicidal ideation. She had endorsed seeing ghosts but did not during interview appear to be responding internal stimuli. There is no clear evidence of delusional thinking. Attention, concentration, and memory appeared intact, but none were formally tested. Alert and oriented times three. Insight and judgment are limited. Impulse control is limited. Vitals/I&O/Wt Last Vital Signs Temp 98.3 F 11/03/22 20:43 Pulse 78 11/04/22 06:00 Resp 16 11/04/22 06:00 BP 100/69 11/04/22 06:00 Pulse Ox 100 11/04/22 06:00 O2 Del Method Room Air 11/03/22 20:43 11/03/22 11/04/22 11/04/22 22:59 06:59 14:59 Output Total 1800 / 1800 850 / 2650 2250 / 2250 Balance -1800 / -1800 -850 / -2650 -2250 / -2250 Data NPU 10/30/22 10:00 10/30/22 10:00 A&P Assessment and plan (1) Major depressive disorder, recurrent: (2) Alcohol use disorder, severe, dependence: (3) Opioid use disorder, severe, dependence: Plan This is a 32-year-old, white female, with genetic loading for mental health and addiction issues, with a long history of mental health issues with limited mental health treatment, active drug and alcohol issues with history of significant alcohol use disorder and other addiction current active opiate addiction but reportedly 4 days sober here because of suicidal thoughts, reporting she is open to starting medication. 1. Continue with catheter placement due to urinary retention, likely resumption in function of bladder in 2-3 days. Will hold on use of antipsychotic at this time. Resume Suboxone 4mg/1mg/day SL BID today. 2. Continue Lexapro 10 mg p.o. daily for depression. 3. Encourage individual, group, and milieu therapy. 4. Continue q-15-minute checks for safety. 5. Encourage sober living treatment after discharge at the highest level of care to which she is willing to commit. Seeking inpatient substance abuse treatment. Involuntary Hold Information 96 Hour Hold: 96 Hour Involuntary Admission: No Attestations NPU Medical Necessity Statement*: Inpatient hospitalization is medically necessary and the clinically appropriate intervention, at this time. We will monitor medications and make changes as indicated. Likely length of stay is 4-6 days. Coding Level of Care Code Acute Code for [facility] Diagnoses Major depressive disorder, recurrent F33.9 Alcohol use disorder, severe, dependence F10.20 Opioid use disorder, severe, dependence F11.20
[2022-11-04 20:17] VITALS: BP 115/77; PULSE 86; RESP 15; TEMP 36.8; O2SAT 97
[2022-11-04] MEDS: trazodone 50 mg Tablet PO ×2 (20:32→22:01)
[2022-11-04] MEDS: buprenorphine-naloxone 4-1 mg Film 1 EACH SUBLINGUAL (20:32)
[2022-11-04] MEDS: acetaminophen 325 mg Tablet 650 MG PO (22:01)
[2022-11-05] MEDS: methocarbamol 500 mg Tablet PO ×2 (01:05→20:32)
[2022-11-05] MEDS: ibuprofen 600 mg Tablet PO (03:51)
[2022-11-05 06:00] VITALS: BP 105/63; PULSE 91; RESP 18; O2SAT 99
[2022-11-05] MEDS: polyethylene glycol 3350 Pkt 17 gm PO ×2 (08:53→17:27)
[2022-11-05] MEDS: nicotine 21 mg Patch 1 PATCH TRANSDERMA (08:54)
[2022-11-05] MEDS: hyDROXYzine 25 mg Capsule 50 MG PO ×2 (08:54→20:30)
[2022-11-05] MEDS: pantoprazole DR 40 mg Tablet PO (08:55)
[2022-11-05] MEDS: escitalopram 10 mg Tablet PO (08:55)
[2022-11-05] MEDS: buprenorphine-naloxone 4-1 mg Film 1 EACH SUBLINGUAL ×2 (08:55→20:31)
[2022-11-05] MEDS: tamsulosin 0.4 mg Capsule PO (08:55)
[2022-11-05] MEDS: folic acid 1 mg Tablet PO (08:55)
[2022-11-05] MEDS: thiamine 100 mg Tablet PO (08:55)
[2022-11-05] MEDS: multivitamin therapeutic Tablet 1 TAB PO (08:55)
[2022-11-05] MEDS: sennosides-docusate Tablet 2 TAB PO ×2 (08:55→17:27)
[2022-11-05] MEDS: gabapentin 300 mg Capsule PO ×2 (08:55→20:31)
--- NOTE | 2022-11-05 09:12 | PC.NURSE ---
DR. SANTOS INTO SEE PT THIS AM. PT REPORTED ISSUES WITH SLEEP, VOICES AND HAVING NIGHTMARES. NEW ORDERS WERE RECEIVED TO START RISPERIDONE 0.5 MG PO Q HS FOR SLEEP. PT EDUCATED ON NEW MEDICATION. VERBALIZED UNDERSTANDING. ALL QUESTIONS WERE ANSWERED AND SUPPORT WAS VOICED. ORDERS PLACED IN [place].
[2022-11-05] MEDS: OLANZapine 5 mg ODT PO (11:05)
[2022-11-05 14:00] VITALS: BP 114/80; PULSE 92; RESP 17; TEMP 37; O2SAT 95
--- NOTE | 2022-11-05 16:07 | W.PM.NPUPNS ---
Subjective NPU Subjective: Sherry is a 32-year-old white female with alcohol dependence and opiate dependence along with depression admitted with suicidal ideation and command auditory hallucinations. The patient continued to require placement of a Parsons catheter due to urinary retention. She continues to remain on a bowel protocol with some improvement in regards to constipation. She had reported that the voices and shadows appear to return over the last few days. She had reported having intense nightmares and endorsed some PTSD related symptoms. She had reported relief of withdrawal symptoms from opiates with the addition of Suboxone. Mental Status Exam MSE Comments: This is a well-nourished well-developed white female, in hospital scrubs, with limited grooming and adequate eye contact. No abnormal movements, except for mild psychomotor retardation. She was cooperative with exam in moderate distress today. Speech was normal rate and volume. Mood described as down; affect was restricted in range and mood congruent. Thought process was organized. Thought content: She endorsed no suicidal ideation and denied any homicidal ideation. She had endorsed seeing ghosts and endorsed hearing voices today. She did not appear to be responding to internal stimuli. There is no clear evidence of delusional thinking. Attention, concentration, and memory appeared intact, but none were formally tested. Alert and oriented times three. Insight and judgment are limited. Impulse control is limited. Vitals/I&O/Wt Last Vital Signs Temp 98.6 F 11/05/22 14:00 Pulse 92 11/05/22 14:00 Resp 17 11/05/22 14:00 BP 114/80 11/05/22 14:00 Pulse Ox 95 11/05/22 14:00 O2 Del Method Room Air 11/05/22 06:00 11/05/22 11/05/22 11/05/22 06:59 14:59 22:59 Output Total 2200 / 6600 Balance -2200 / -5840 Data NPU 10/30/22 10:00 10/30/22 10:00 Micro: Microbiology 11/03/22 17:20 Urine Culture - Preliminary Urine,Clean Catch Microbiology 11/03/22 17:20 Urine,Clean Catch Urine Culture - Preliminary A&P Assessment and plan (1) Major depressive disorder, recurrent: (2) Alcohol use disorder, severe, dependence: (3) Opioid use disorder, severe, dependence: Plan This is a 32-year-old, white female, with genetic loading for mental health and addiction issues, with a long history of mental health issues with limited mental health treatment, active drug and alcohol issues with history of significant alcohol use disorder and other addiction current active opiate addiction but reportedly 4 days sober here because of suicidal thoughts, reporting she is open to starting medication. 1. Continue with catheter placement due to urinary retention, likely resumption in function of bladder in 2-3 days. Will hold on use of antipsychotic at this time. Resume Suboxone 4mg/1mg/day SL BID and trial of Risperidone .5mg at night for hallucinations. 2. Continue Lexapro 10 mg p.o. daily for depression. 3. Encourage individual, group, and milieu therapy. 4. Continue q-15-minute checks for safety. 5. Encourage sober living treatment after discharge at the highest level of care to which she is willing to commit. Seeking inpatient substance abuse treatment-likely option near patient's home. Involuntary Hold Information 96 Hour Hold: 96 Hour Involuntary Admission: No Attestations NPU Medical Necessity Statement*: Inpatient hospitalization is medically necessary and the clinically appropriate intervention at this time. We will monitor medications and make changes as indicated. Likely length of stay is 4-6 days. Coding Level of Care Code Acute Code for [facility] Fwd Diagnoses Major depressive disorder, recurrent F33.9 Alcohol use disorder, severe, dependence F10.20 Opioid use disorder, severe, dependence F11.20
[2022-11-05] MEDS: trazodone 50 mg Tablet PO ×2 (20:31→23:08)
[2022-11-05] MEDS: risperiDONE 0.25 mg Tablet 0.5 MG PO (20:31)
[2022-11-05 20:56] VITALS: BP 110/72; PULSE 83; RESP 16; TEMP 36.8; O2SAT 96
[2022-11-06] MEDS: acetaminophen 325 mg Tablet 650 MG PO ×2 (05:11→11:02)
[2022-11-06 06:00] VITALS: BP 108/68; PULSE 88; RESP 18; O2SAT 98
[2022-11-06] MEDS: buprenorphine-naloxone 4-1 mg Film 1 EACH SUBLINGUAL ×2 (08:43→20:39)
[2022-11-06] MEDS: pantoprazole DR 40 mg Tablet PO (08:44)
[2022-11-06] MEDS: multivitamin therapeutic Tablet 1 TAB PO (08:44)
[2022-11-06] MEDS: escitalopram 10 mg Tablet PO (08:44)
[2022-11-06] MEDS: gabapentin 300 mg Capsule PO ×2 (08:44→20:38)
[2022-11-06] MEDS: sennosides-docusate Tablet 2 TAB PO ×2 (08:44→17:47)
[2022-11-06] MEDS: folic acid 1 mg Tablet PO (08:44)
[2022-11-06] MEDS: thiamine 100 mg Tablet PO (08:44)
[2022-11-06] MEDS: polyethylene glycol 3350 Pkt 17 gm PO ×2 (08:45→17:47)
[2022-11-06] MEDS: tamsulosin 0.4 mg Capsule PO (08:45)
[2022-11-06] MEDS: nicotine 21 mg Patch 1 PATCH TRANSDERMA (08:50)
[2022-11-06] MEDS: OLANZapine 5 mg ODT PO (11:02)
[2022-11-06] MEDS: methocarbamol 500 mg Tablet PO ×2 (11:02→20:38)
--- NOTE | 2022-11-06 12:49 | PC.NURSE ---
Per Dr's orders removed 14F Catheter after removing 10ml sterile H2O in bulb, catheter intact, pt tolerated well. Pt had 900ml out at time of removal.
[2022-11-06 14:00] VITALS: BP 108/76; PULSE 88; RESP 16; TEMP 36.6; O2SAT 97
[2022-11-06] MEDS: hyDROXYzine 25 mg Capsule 50 MG PO ×2 (14:14→20:38)
--- NOTE | 2022-11-06 15:09 | P.NPUPN_ITS ---
Subjective NPU Subjective: Sherry is a 32-year-old white female with alcohol dependence and opiate dependence along with depression admitted with suicidal ideation and command auditory hallucinations. The patient had reported improved mood but reported that she continued to have some visual hallucinations. She denied any auditory hallucinations at this time. Patient had her Parsons catheter removed but did get to regain function of her bladder. She reported having less nightmares last night. She had expressed continued desire to attend an inpatient drug rehabilitation program upon stabilization here. She had reported relief of her constipation and she remained on stool softeners here. She had endorsed feeling more optimistic. She had continue to complain of low energy. She was able to attend groups and engage in self-care. She had reported difficulties with falling asleep. Mental Status Exam MSE Comments: This is a well-nourished well-developed white female, in hospital scrubs, with limited grooming and adequate eye contact. No abnormal movements, except for mild psychomotor retardation. She was cooperative with exam in moderate distress today. Speech was normal rate and volume. Mood described as better; affect was restricted in range and mood incongruent. Thought process was linear and organized. Thought content: She endorsed no suicidal ideation and denied any homicidal ideation. She had endorsed seeing ghosts again today but reports no auditory hallucinations today. She did not appear to be responding to internal stimuli. There is no clear evidence of delusional thinking. Attention, concentration, and memory appeared intact, but none were formally tested. Alert and oriented times three. Insight and judgment are limited. Impulse control is limited. Vitals/I&O/Wt Last Vital Signs Temp 98.2 F 11/05/22 20:56 Pulse 88 11/06/22 06:00 Resp 18 11/06/22 06:00 BP 108/68 11/06/22 06:00 Pulse Ox 98 11/06/22 06:00 O2 Del Method Room Air 11/06/22 06:00 11/06/22 11/06/22 11/06/22 06:59 14:59 22:59 Output Total 1000 / 2450 1900 / 1900 Balance -1000 / -2450 -1900 / -1900 Data NPU 10/30/22 10:00 10/30/22 10:00 Micro: Microbiology 11/03/22 17:20 Urine Culture - Final Urine,Clean Catch Microbiology 11/03/22 17:20 Urine,Clean Catch Urine Culture - Final A&P Assessment and plan (1) Major depressive disorder, recurrent: (2) Alcohol use disorder, severe, dependence: (3) Opioid use disorder, severe, dependence: Plan This is a 32-year-old, white female, with genetic loading for mental health and addiction issues, with a long history of mental health issues with limited mental health treatment, active drug and alcohol issues with history of si gnificant alcohol use disorder and other addiction current active opiate addiction but reportedly 4 days sober here because of suicidal thoughts, reporting she is open to starting medication. 1. Removed catheter, awaiting resumption of voiding. 2. Continue Lexapro 10 mg p.o. daily for depression, risperidone .5mg for psychosis, and suboxone for opioid dependence tx. Hold on use of trazodone or doxepin with hx of potential to exacerbate urinary retention. 3. Encourage individual, group, and milieu therapy. 4. Continue q-15-minute checks for safety. 5. Encourage sober living treatment after discharge at the highest level of care to which she is willing to commit. Seeking inpatient substance abuse treatment-likely option near patient's home. Involuntary Hold Information 96 Hour Hold: 96 Hour Involuntary Admission: No Attestations NPU Medical Necessity Statement*: Inpatient hospitalization is medically necessary and the clinically appropriate intervention at this time. We will monitor medications and make changes as indicated. Likely length of stay is 4-6 days. Coding Level of Care Code Acute Code for [facility] Fwd Diagnoses Major depressive disorder, recurrent F33.9 Alcohol use disorder, severe, dependence F10.20 Opioid use disorder, severe, dependence F11.20
[2022-11-06 19:41] VITALS: BP 111/78; PULSE 94; RESP 18; TEMP 36.6; O2SAT 97
[2022-11-06] MEDS: risperiDONE 0.25 mg Tablet 0.5 MG PO (20:38)
[2022-11-07 05:52] VITALS: BP 142/91; PULSE 84; RESP 18; TEMP 36.9; O2SAT 98
[2022-11-07] MEDS: hyDROXYzine 25 mg Capsule 50 MG PO ×3 (08:43→20:24)
[2022-11-07] MEDS: thiamine 100 mg Tablet PO (08:43)
[2022-11-07] MEDS: tamsulosin 0.4 mg Capsule PO (08:43)
[2022-11-07] MEDS: pantoprazole DR 40 mg Tablet PO (08:43)
[2022-11-07] MEDS: nicotine 21 mg Patch 1 PATCH TRANSDERMA (08:43)
[2022-11-07] MEDS: gabapentin 300 mg Capsule PO ×2 (08:44→20:25)
[2022-11-07] MEDS: folic acid 1 mg Tablet PO (08:44)
[2022-11-07] MEDS: buprenorphine-naloxone 4-1 mg Film 1 EACH SUBLINGUAL ×2 (08:44→20:24)
[2022-11-07] MEDS: escitalopram 10 mg Tablet PO (08:44)
[2022-11-07] MEDS: multivitamin therapeutic Tablet 1 TAB PO (08:44)
[2022-11-07] MEDS: sennosides-docusate Tablet 2 TAB PO ×2 (08:44→17:57)
[2022-11-07] MEDS: polyethylene glycol 3350 Pkt 17 gm PO ×2 (08:45→17:57)
--- NOTE | 2022-11-07 09:04 | PC.NURSE ---
patient sitting in her room, patient calm and pleasant. During assessment, patient reporting some anxiety about moving out from her apartment, but is eager to go to a great place . Patient says that she hears a coice saying to hurt herself, but that she is able to hell herself don't do it, you aren't stupid. Patient states that she has worsening auditory and visual hallucinations since quitting the drugs.
--- NOTE | 2022-11-07 12:27 | W.PM.NPUPNS ---
Subjective NPU Subjective: Sherry is a 32-year-old white female with alcohol dependence and opiate dependence along with depression admitted with suicidal ideation and command auditory hallucinations. She had reported having continued hallucinations but not of a command nature. She continued to complain of sleeping poorly. She states that she had woken up at 2:30 AM and had difficulties getting back to sleep. She had not been able to tolerate or urinate and was thus placed back on observation as she had a Patterson catheter placed in her again. She had continued to report relief of constipation with her medication regimen. She had reported good control of cravings for opiate with her Suboxone at this time. She had endorsed a past history of PTSD related symptoms. She had reported no cravings for alcohol at this time. Mental Status Exam MSE Comments: This is a well-nourished well-developed white female, in hospital scrubs with a patterson catheter placed in her, with limited grooming and adequate eye contact. No abnormal movements, except for mild psychomotor retardation. She was cooperative with exam in moderate distress today. Speech was normal rate and volume. Mood described as okay; affect remained restricted in range and mood incongruent. Thought process was linear and organized. Thought content: She endorsed no suicidal ideation and denied any homicidal ideation. She had endorsed hearing voices internally and seeing shadows. She did not appear to be responding to internal stimuli. There is no clear evidence of delusional thinking. Attention, concentration, and memory appeared intact, but none were formally tested. Alert and oriented times three. Insight and judgment are limited. Impulse control is limited. Vitals/I&O/Wt Last Vital Signs Temp 98.5 F 11/07/22 05:52 Pulse 84 11/07/22 05:52 Resp 18 11/07/22 05:52 BP 142/91 11/07/22 05:52 Pulse Ox 98 11/07/22 05:52 O2 Del Method Room Air 11/07/22 05:52 11/06/22 11/07/22 11/07/22 22:59 06:59 14:59 Output Total 1500 / 3400 1600 / 1600 Balance -1500 / -3400 -1600 / -1600 Data NPU 10/30/22 10:00 10/30/22 10:00 Micro: Microbiology 11/03/22 17:20 Urine Culture - Final Urine,Clean Catch Microbiology 08/01/23 17:20 Urine,Clean Catch Urine Culture - Final A&P Assessment and plan (1) Major depressive disorder, recurrent: (2) Alcohol use disorder, severe, dependence: (3) Opioid use disorder, severe, dependence: Plan This is a 32-year-old, white female, with genetic loading for mental health and addiction issues, with a long history of mental health issues with limited mental health treatment, active drug and alcohol issues with history of significant alcohol use disorder and other addiction current active opiate addiction but reportedly 4 days sober here because of suicidal thoughts, reporting she is open to starting medication. 1. Replaced patterson catheter. Reconsult medicine. 2. Continue Lexapro 10 mg p.o. daily for depression, Continue risperidone .5mg for psychosis, and suboxone for opioid dependence tx. Hold on use of trazodone or doxepin with hx of potential to exacerbate urinary retention. 3. Encourage individual, group, and milieu therapy. 4. Continue q-15-minute checks for safety. 5. Encourage sober living treatment after discharge at the highest level of care to which she is willing to commit. Seeking inpatient substance abuse treatment-likely option near patient's home. Involuntary Hold Information 96 Hour Hold: 96 Hour Involuntary Admission: No Attestations NPU Medical Necessity Statement*: Inpatient hospitalization is medically necessary and deemed to be the clinically appropriate intervention at this time. We will monitor medications and make changes as indicated. Her likely length of stay is 4-6 days. Coding Level of Care Code Acute Code for [facility] Fwd Diagnoses Major depressive disorder, recurrent F33.9 Alcohol use disorder, severe, dependence F10.20 Opioid use disorder, severe, dependence F11.20
[2022-11-07 14:00] VITALS: BP 132/97; PULSE 89; RESP 16; TEMP 36.9; O2SAT 97
--- NOTE | 2022-11-07 18:42 | PC.NURSE ---
Patient reported to this nurse that she had 800mL of urine output this morning, and 900mL of urine output this afternoon.
[2022-11-07 19:58] VITALS: BP 105/71; PULSE 91; RESP 18; TEMP 36.9; O2SAT 97
[2022-11-07] MEDS: methocarbamol 500 mg Tablet PO (20:24)
[2022-11-07] MEDS: risperiDONE 0.25 mg Tablet 0.5 MG PO (20:24)
[2022-11-07] MEDS: OLANZapine 5 mg ODT PO (21:52)
[2022-11-08] MEDS: hyDROXYzine 25 mg Capsule 50 MG PO ×3 (03:48→20:30)
[2022-11-08 06:00] VITALS: RESP 16
[2022-11-08] MEDS: sennosides-docusate Tablet 2 TAB PO ×2 (08:40→17:38)
[2022-11-08] MEDS: escitalopram 10 mg Tablet PO (08:40)
[2022-11-08] MEDS: buprenorphine-naloxone 4-1 mg Film 1 EACH SUBLINGUAL ×2 (08:40→20:29)
[2022-11-08] MEDS: pantoprazole DR 40 mg Tablet PO (08:40)
[2022-11-08] MEDS: thiamine 100 mg Tablet PO (08:40)
[2022-11-08] MEDS: tamsulosin 0.4 mg Capsule PO ×2 (08:40→17:38)
[2022-11-08] MEDS: multivitamin therapeutic Tablet 1 TAB PO (08:40)
[2022-11-08] MEDS: folic acid 1 mg Tablet PO (08:40)
[2022-11-08] MEDS: polyethylene glycol 3350 Pkt 17 gm PO ×2 (08:41→17:39)
[2022-11-08] MEDS: gabapentin 300 mg Capsule PO ×2 (08:42→20:30)
[2022-11-08] MEDS: nicotine 21 mg Patch 1 PATCH TRANSDERMA (08:47)
[2022-11-08] MEDS: acetaminophen 325 mg Tablet 650 MG PO (08:47)
[2022-11-08] MEDS: methocarbamol 500 mg Tablet PO ×2 (08:48→20:30)
[2022-11-08 11:50] LABS: Bilirubin Urine Neg (Negative); Blood Urine 3+ (Negative); Glucose Urine UA Norm (Normal); Ketones Urine 1+ (Negative); Leukocyte Esterase Urine 1+ (Negative); Nitrate Urine Negative (Negative); Protein Urine Trace (Negative); Urine Appearance Clear (CLEAR); Urine Color Yellow (Yellow); Urobilinogen Urine Norm (Negative); pH Urine 5 (5-7)
[2022-11-08 11:51] LABS: Add Urine Culture? Yes; Add Urine Microscopic? YES; Bacteria Urine 1+ /hpf; WBC Urine 15-25 /hpf (0-5)
--- NOTE | 2022-11-08 12:38 | W.PM.NPUPNS ---
Subjective NPU Subjective: Sherry is a 32-year-old white female with alcohol dependence and opiate dependence along with depression admitted with suicidal ideation and command auditory hallucinations. Patient had reported continued nightmares and reported having hallucinations including stating that she felt like bugs were crawling on her yesterday. She had reported depressed mood but reported that it was getting better. She had reported no cravings for opiates at this time. She reported no opiate withdrawal symptoms. She had been able to attend groups and was able to engage in self-care. She remained with a Patterson catheter as she had continued to struggle with urinating without the catheter. Mental Status Exam MSE Comments: This is a well-nourished well-developed white female, in hospital scrubs with a patterson catheter placed in her, with limited grooming and adequate eye contact. No abnormal movements, except for mild psychomotor retardation. She was cooperative with exam in moderate distress today. Speech was normal rate and volume. Mood described as allright. Her affect remained restricted in range and mood incongruent. Thought process was linear and organized. Thought content: She endorsed no suicidal ideation and denied any homicidal ideation. She had endorsed tactile hallucinations and seeing shadows intermittently. She did not appear to be responding to internal stimuli. There is no clear evidence of delusional thinking. Attention, concentration, and memory appeared intact, but none were formally tested. Alert and oriented times three. Insight and judgment are limited. Impulse control is limited. Vitals/I&O/Wt Last Vital Signs Temp 98.5 F 11/07/22 19:58 Pulse 91 11/07/22 19:58 Resp 16 11/08/22 06:00 BP 105/71 11/07/22 19:58 Pulse Ox 97 11/07/22 19:58 O2 Del Method Room Air 11/07/22 14:00 11/07/22 11/08/22 11/08/22 22:59 06:59 14:59 Intake Total 760 / 760 Balance 760 / 760 Weight last 48 hrs Weight 73.028 kg Physical Exam Urinary Catheter Management: Patterson: Cath Placed During This Visit: no Reason for Continuing Indwelling Catheter: Acute Urinary Retention or Obstruction Data NPU 10/30/22 10:00 10/30/22 10:00 A&P Assessment and plan (1) Major depressive disorder, recurrent: (2) Alcohol use disorder, severe, dependence: (3) Opioid use disorder, severe, dependence: Plan This is a 32-year-old, white female, with genetic loading for mental health and addiction issues, with a long history of mental health issues with limited mental health treatment, active drug and alcohol issues with history of significant alcohol use disorder and other addiction current active opiate addiction but reportedly 4 days sober here because of suicidal thoughts, reporting she is open to starting medication. 1. Continue with patterson catheter. Reconsult medicine. 2. Continue Lexapro 10 mg p.o. daily for depression, Increase risperidone 1mg for psychosis, and suboxone for opioid dependence tx. Continued holding of medications likely to worsen urinary retention issue (trazodone, prazosin, seroquel) 3. Encourage individual, group, and milieu therapy. 4. Continue q-15-minute checks for safety. 5. Encourage sober living treatment after discharge at the highest level of care to which she is willing to commit. Seeking inpatient substance abuse treatment-likely option near patient's home. Involuntary Hold Information 96 Hour Hold: 96 Hour Involuntary Admission: No Attestations NPU Medical Necessity Statement*: Inpatient hospitalization is medically necessary and deemed to be the clinically appropriate intervention at this time. We will monitor medications and make changes as indicated. Her likely length of stay is 4-6 days. Coding Level of Care Code Acute Code for [facility] Fwd Diagnoses Major depressive disorder, recurrent F33.9 Alcohol use disorder, severe, dependence F10.20 Opioid use disorder, severe, dependence F11.20
[2022-11-08] MEDS: lactulose oral liq 20 gm/30 mL UDC PO ×2 (13:11→17:39)
[2022-11-08] MEDS: OLANZapine 5 mg ODT PO (13:28)
[2022-11-08 14:00] VITALS: BP 132/85; PULSE 87; RESP 17; TEMP 36.8; O2SAT 94
--- NOTE | 2022-11-08 16:43 | PC.NURSE ---
600mL urine output at 1640
[2022-11-08 19:55] VITALS: BP 137/76; PULSE 101; RESP 18; TEMP 37.1; O2SAT 98
[2022-11-08] MEDS: risperiDONE 1 mg Tablet PO (20:30)
[2022-11-09] MEDS: ondansetron 4 MG Tablet PO (00:50)
[2022-11-09] MEDS: hyDROXYzine 25 mg Capsule 50 MG PO ×2 (02:32→08:33)
[2022-11-09 06:00] VITALS: RESP 16
--- NOTE | 2022-11-09 06:33 | PC.NURSE ---
pt's patterson catheter clamped at 0600, as per order
[2022-11-09] MEDS: sennosides-docusate Tablet 2 TAB PO ×2 (08:24→20:15)
[2022-11-09] MEDS: escitalopram 10 mg Tablet 20 MG PO (08:26)
[2022-11-09] MEDS: thiamine 100 mg Tablet PO (08:27)
[2022-11-09] MEDS: pantoprazole DR 40 mg Tablet PO (08:27)
[2022-11-09] MEDS: multivitamin therapeutic Tablet 1 TAB PO (08:27)
[2022-11-09] MEDS: folic acid 1 mg Tablet PO (08:27)
[2022-11-09] MEDS: polyethylene glycol 3350 Pkt 17 gm PO ×2 (08:27→20:16)
[2022-11-09] MEDS: tamsulosin 0.4 mg Capsule PO ×2 (08:27→20:15)
[2022-11-09] MEDS: buprenorphine-naloxone 4-1 mg Film 1 EACH SUBLINGUAL ×2 (08:27→20:16)
[2022-11-09] MEDS: gabapentin 300 mg Capsule PO ×2 (08:27→20:16)
--- NOTE | 2022-11-09 09:28 | PM.PN ---
Subjective Subjective: Received call from psychiatrist Dr. Zamora that patient had a Parsons catheter placed few days ago because of concerns of urinary retention. Since then patient has failed voiding trial even after adjusting medications. Review of medications done in detail with psychiatrist over the phone call. It seems patient has been getting risperidone, olanzapine which has been ordered daily as needed, Suboxone. Patient has already been on Flomax 0.4 mg daily. Recommended that all of these medication as above has a potential of causing urinary retention in patients. To see if any other medication can be withheld or dose can be altered. Agreed for discontinuing olanzapine. Recommended to continue Parsons catheter for next 24 hours along with increased dose of Flomax to 0.4 mg twice daily and then voiding trial with need of bladder scan and straight catheterization as needed for next 24 hours. Vitals/I&O/Wt Last Vital Signs Temp 98.8 F 11/08/22 19:55 Pulse 101 H 11/08/22 19:55 Resp 16 11/09/22 06:00 BP 137/76 11/08/22 19:55 Pulse Ox 98 11/08/22 19:55 O2 Del Method Room Air 11/08/22 14:00 11/08/22 11/09/22 11/09/22 22:59 06:59 14:59 Output Total 600 / 3700 400 / 400 Balance -600 / -2180 -400 / -400 Weight last 48 hrs Weight 73.028 kg Physical Exam Narrative: Patient is awake and alert, able to provide history. Oriented to person, place and situation. Cooperative. Normocephalic. Extraocular movements are intact. Moist mucous membranes. Lungs are clear. Regular rhythm. Abdomen is soft, positive bowel sounds and palpable moving gas. Nontender to palpation in all 4 quadrants. Healing cholecystectomy scars noted in the epigastric area within the tattoo, right flank within a tattoo and above and around the umbilicus. I am unable to palpate the mass that she thought she felt earlier. Bladder is not full. Catheter is intact with leg bag and yellow urine noted. No pitting edema. No involuntary movements appreciated. Speech clear. Keeps toes pointed down (used to dance), no foot drop. Urinary Catheter Management: Parsons: Cath Placed During This Visit: no Reason for Continuing Indwelling Catheter: Acute Urinary Retention or Obstruction Data 10/30/22 10:00 10/30/22 10:00 A&P Assessment and plan (1) Acute urinary retention: Clinically seems like secondary to degree of constipation which is unusual for her. This has since improved with laxative therapy in particular lactulose. Constipation could be driven by lack of alcohol intake, effect of chronic opioids, decreased nicotine. Medication effect is also a possibility though current medications not classically associated with urinary retention. I asked pharmacy to review both home and inpatient medication list and primary culprit with a very low risk was amlodipine. I am not sure that Abilify and Suboxone are contributing factors in this situation. Given need for straight cath multiple times I concur with Parsons catheter placement as well as utilization of Flomax at this time. Recommendations: Recommendations as above in subjective. Holding off on olanzapine for now. Continuing of Suboxone, Abilify and risperidone at the lowest dose possible. All the medications above can cause urinary retention. Continue Parsons catheter for now for next 24 hours as dose of Flomax is increased to 0.4 mg twice daily. After removing of Parsons catheter bladder scanning and straight catheterization as needed for next 24 hours. (2) Irritable bowel syndrome (IBS): Usually with diarrhea, not on focused chronic treatment (3) PCOS (polycystic ovarian syndrome): Along with endometriosis, follows with [facility], on control pills but only recently started (4) Major depressive disorder, recurrent: Admitted with suicidal ideation, started on escitalopram along with Abilify here; had been on fluoxetine outpatient prior to admission (5) Alcohol use disorder, severe, dependence: And a history of chronic pancreatitis, in early abstinence (6) Opioid use disorder, severe, dependence: Started on Suboxone this hospital stay, had been on Percocets and [facility]'s via prescription previously and was on gabapentin and methocarbamol at home as well Plan Patient's UA showing 1+ leukoesterase without any nitrite. Urine cultures so far have been negative. Patient denies of having dysuria. Urinary retention most likely in setting of medications. Can hold off on any antibiotics for now. Thank you for involving us in the care of the patient. Please call back with any question if needed. Attestations Medical Necessity Statement*: As per primary team. Diagnoses Acute urinary retention R33.8 Irritable bowel syndrome (IBS) K58.9 PCOS (polycystic ovarian syndrome) E28.2 Major depressive disorder, recurrent F33.9 Alcohol use disorder, severe, dependence F10.20 Opioid use disorder, severe, dependence F11.20
[2022-11-09] MEDS: nicotine 21 mg Patch 1 PATCH TRANSDERMA (09:39)
[2022-11-09] MEDS: acetaminophen 325 mg Tablet 650 MG PO ×2 (11:29→23:41)
[2022-11-09] MEDS: methocarbamol 500 mg Tablet PO (11:30)
[2022-11-09 11:55] VITALS: BP 124/79; PULSE 87; RESP 16; TEMP 37.1; O2SAT 98
[2022-11-09] MEDS: sulfamethoxazole-trimeth DS 160-800 mg Tablet 1 TAB PO ×2 (12:19→20:15)
[2022-11-09 14:00] VITALS: BP 124/80; PULSE 76; RESP 16; TEMP 36.9; O2SAT 97
--- NOTE | 2022-11-09 14:14 | W.PM.NPUPNS ---
Subjective NPU Subjective: Sherry is a 32-year-old white female with alcohol dependence and opiate dependence along with depression admitted with suicidal ideation and command auditory hallucinations. The patient had her Patterson catheter removed and was able to urinate today. She had endorsed a long history of ADHD since childhood but stated that she had been untreated throughout all of her adulthood. She reported difficulties with staying on task along with frequent distraction and boredom and inability to pay attention and concentrate for most of her life. She had endorsed less hallucinations and stated that that was better but she continued to endorse depressed mood. She had expressed some motivation with wanting to go to an inpatient rehabilitation program in [place]. She had reported difficulties with falling asleep. She had reported difficulties with falling asleep at night. The patient was able to attend groups today. She reported feeling less hopeless. She had continued to complain of low energy and feeling tired as she states that she had not slept well at night. Mental Status Exam MSE Comments: This is a well-nourished well-developed white female, in hospital scrubs with improved grooming and adequate eye contact. No abnormal movements, except for mild psychomotor retardation. She was cooperative with exam in mild distress today. Speech was normal rate rhythm and volume. Mood described as a little depressed. Her affect remained restricted. Thought process was linear and organized. Thought content: She endorsed no suicidal ideation and denied any homicidal ideation. She had endorsed no auditory or visual hallucinations today. She did not appear to be responding to internal stimuli. There is no clear evidence of delusional thinking. Attention span was variable. Her recent and remote memory appeared grossly intact. She was alert and oriented times three. Insight and judgment are limited. Impulse control is limited. Vitals/I&O/Wt Last Vital Signs Temp 98.8 F 11/09/22 11:55 Pulse 87 11/09/22 11:55 Resp 16 11/09/22 11:55 BP 124/79 11/09/22 11:55 Pulse Ox 98 11/09/22 11:55 O2 Del Method Room Air 11/09/22 11:55 11/08/22 11/09/22 11/09/22 22:59 06:59 14:59 Output Total 600 / 3700 400 / 400 Balance -600 / -2180 -400 / -400 Weight last 48 hrs Weight 73.028 kg Physical Exam Urinary Catheter Management: Patterson: Cath Placed During This Visit: no Reason for Continuing Indwelling Catheter: Acute Urinary Retention or Obstruction Data NPU 10/30/22 10:00 10/30/22 10:00 Micro: Microbiology 11/08/22 09:43 Urine Culture - Preliminary Urine,Clean Catch Microbiology 11/08/22 09:43 Urine,Clean Catch Urine Culture - Preliminary A&P Assessment and plan (1) Major depressive disorder, recurrent: (2) Alcohol use disorder, severe, dependence: (3) Opioid use disorder, severe, dependence: Plan This is a 32-year-old, white female, with genetic loading for mental health and addiction issues, with a long history of mental health issues with limited mental health treatment, active drug and alcohol issues with history of significant alcohol use disorder and other addiction current active opiate addiction but reportedly 4 days sober here because of suicidal thoughts, reporting she is open to starting medication. 1. Continue with patterson catheter. Reconsult medicine. 2. Continue Lexapro 20 mg p.o. daily for depression, Continue risperidone 1mg for psychosis, and suboxone for opioid dependence tx. Trial of Doxepin 20mg at night. 3. Encourage individual, group, and milieu therapy. 4. Continue q-15-minute checks for safety. 5. Encourage sober living treatment after discharge at the highest level of care to which she is willing to commit. Seeking inpatient substance abuse treatment-likely option near patient's home on inpatient basis. Involuntary Hold Information 96 Hour Hold: 96 Hour Involuntary Admission: No Attestations NPU Medical Necessity Statement*: Inpatient hospitalization is medically necessary and deemed to be the clinically appropriate intervention at this time. We will monitor medications and make changes as indicated. Her likely length of stay is 2-3 days. Coding Level of Care Code Acute Code for g Fwd Diagnoses Major depressive disorder, recurrent F33.9 Alcohol use disorder, severe, dependence F10.20 Opioid use disorder, severe, dependence F11.20
[2022-11-09 19:56] VITALS: BP 113/82; PULSE 84; RESP 18; TEMP 36.9; O2SAT 98
[2022-11-09] MEDS: doxepin 10 mg Capsule 20 MG PO (20:15)
[2022-11-09] MEDS: risperiDONE 1 mg Tablet PO (20:16)
--- NOTE | 2022-11-09 23:43 | PC.NURSE ---
PT CAME TO NURSES DESK REQUESTING TYLENOL FOR GENERALIZED BODY ACHES/PAINS. PT ALSO STATED SHE WANTED TO LET US KNOW SHE HAS BEEN URINATING WITH SOME HESITANCY
[2022-11-10 06:00] VITALS: BP 107/67; PULSE 99; RESP 18; TEMP 36.9; O2SAT 98
[2022-11-10] MEDS: folic acid 1 mg Tablet PO (08:22)
[2022-11-10] MEDS: multivitamin therapeutic Tablet 1 TAB PO (08:22)
[2022-11-10] MEDS: tamsulosin 0.4 mg Capsule PO ×2 (08:22→17:42)
[2022-11-10] MEDS: sennosides-docusate Tablet 2 TAB PO ×2 (08:22→17:42)
[2022-11-10] MEDS: hyDROXYzine 25 mg Capsule 50 MG PO ×2 (08:23→20:14)
[2022-11-10] MEDS: thiamine 100 mg Tablet PO (08:23)
[2022-11-10] MEDS: pantoprazole DR 40 mg Tablet PO (08:23)
[2022-11-10] MEDS: polyethylene glycol 3350 Pkt 17 gm PO ×2 (08:23→17:42)
[2022-11-10] MEDS: nicotine 21 mg Patch 1 PATCH TRANSDERMA (08:28)
[2022-11-10] MEDS: buprenorphine-naloxone 4-1 mg Film 1 EACH SUBLINGUAL ×2 (08:28→20:19)
[2022-11-10] MEDS: escitalopram 10 mg Tablet 20 MG PO (08:28)
[2022-11-10] MEDS: sulfamethoxazole-trimeth DS 160-800 mg Tablet 1 TAB PO ×2 (08:28→20:51)
[2022-11-10] MEDS: gabapentin 300 mg Capsule PO ×2 (08:28→20:51)
--- NOTE | 2022-11-10 09:22 | PC.NURSE ---
0960 pt came to nurses station gave nursing staff a note for doctor metz it stated IT HURTS TO MUCH TO TALK BUT I'S NOT SURE IF ITS THE MEDS OR ME BUT THE NOYOLA WONT STOP MOVING AND I STILL CANT PEE AND SOME OF MY THOUGHTS DONT SOUND LIKE ME-LOLI
--- NOTE | 2022-11-10 12:57 | W.PM.NPUPNS ---
Subjective NPU Subjective: Sherry is a 32-year-old white female with alcohol dependence and opiate dependence along with depression admitted with suicidal ideation and command auditory hallucinations. Patient once again had problems with urinary retention earlier this morning. She had resumed normal voiding yesterday night but after receiving her nighttime medications she had woken up complaining of not being able to urinate. She had approximately half a liter of urine after being catheterized again this morning. She had reported that she had some odd visual perceptions but reported no auditory hallucinations with the Risperdal today. She had continued to endorse depression but stated that she was not feeling any worse. She had reported improved sleep with the doxepin at night. She had reported normal bowel movements. She had expressed desire to be placed in an inpatient facility once stabilized and continued to appear engaged in groups. She had reported substantial difficulties with staying on track with a history of ADHD symptoms noted. Mental Status Exam MSE Comments: This is a well-nourished well-developed white female, in hospital scrubs with improved grooming and adequate eye contact. No abnormal movements, except for mild psychomotor retardation. She was cooperative with exam in mild distress today. Speech was normal rate rhythm and volume. Mood described as frustrated. Her affect remained restricted. Thought process was linear and organized. Thought content: She endorsed no suicidal ideation and denied any homicidal ideation. She had endorsed no auditory or visual hallucinations today. She did not appear to be responding to internal stimuli. There is no clear evidence of delusional thinking. Attention span was variable. Her recent and remote memory appeared grossly intact. She was alert and oriented times three. Insight and judgment are limited. Impulse control is limited. Vitals/I&O/Wt Last Vital Signs Temp 98.4 F 11/10/22 06:00 Pulse 99 11/10/22 06:00 Resp 18 11/10/22 06:00 BP 107/67 11/10/22 06:00 Pulse Ox 98 11/10/22 06:00 O2 Del Method Room Air 11/09/22 11:55 11/09/22 11/10/22 11/10/22 22:59 06:59 14:59 Output Total 550 / 550 Balance -550 / -550 Physical Exam Urinary Catheter Management: [place]: Cath Placed During This Visit: yes, but has since been removed by the nurse Reason for Continuing Indwelling Catheter: Not indwelling catheter Date Urinary Catheter Removed: 11/09/22 Time Urinary Catheter Discontinued: 08:35 Data NPU 10/30/22 10:00 10/30/22 10:00 Micro: Microbiology 11/08/22 09:43 Urine Culture - Final Urine,Clean Catch Microbiology 11/08/22 09:43 Urine,Clean Catch Urine Culture - Final A&P Assessment and plan (1) Major depressive disorder, recurrent: (2) Alcohol use disorder, severe, dependence: (3) Opioid use disorder, severe, dependence: Plan This is a 32-year-old, white female, with genetic loading for mental health and addiction issues, with a long history of mental health issues with limited mental health treatment, active drug and alcohol issues with history of significant alcohol use disorder and other addiction current active opiate addiction but reportedly 4 days sober here because of suicidal thoughts, reporting she is open to starting medication. 1. Will continue straight catheterization tid prn. 2. Continue Lexapro 20 mg p.o. daily for depression, Continue risperidone 1mg for psychosis, and suboxone for opioid dependence tx. Continue Doxepin 20mg at night. 3. Encourage individual, group, and milieu therapy. 4. Continue q-15-minute checks for safety. 5. Encourage sober living treatment after discharge at the highest level of care to which she is willing to commit. Seeking inpatient substance abuse treatment-likely option near patient's home on inpatient basis. Involuntary Hold Information 96 Hour Hold: 96 Hour Involuntary Admission: No Attestations NPU Medical Necessity Statement*: Inpatient hospitalization is medically necessary and deemed to be the clinically appropriate intervention at this time. We will monitor medications and make changes as indicated. Her likely length of stay is 2-3 days. Coding Level of Care Code Acute Code for [facility] Fwd Diagnoses Major depressive disorder, recurrent F33.9 Alcohol use disorder, severe, dependence F10.20 Opioid use disorder, severe, dependence F11.20
[2022-11-10 13:58] VITALS: BP 115/78; PULSE 95; RESP 16; TEMP 36.6; O2SAT 97
[2022-11-10] MEDS: haloperidol 5 mg Tablet PO (15:06)
--- NOTE | 2022-11-10 18:05 | PC.NURSE ---
PT STATES IS ABLE TO URINATE WHEN HAVING A BM. STATES HAVING TO PUSH REALLY HARD TO URINATE TO POINT OF SEEING STARS
[2022-11-10 20:11] VITALS: BP 114/77; PULSE 76; RESP 18; TEMP 36.9; O2SAT 97
[2022-11-10] MEDS: risperiDONE 1 mg Tablet PO (20:13)
[2022-11-10] MEDS: doxepin 10 mg Capsule 20 MG PO (20:13)
[2022-11-10] MEDS: methocarbamol 500 mg Tablet PO (20:19)
--- NOTE | 2022-11-10 22:53 | PC.NURSE ---
patient been c/o urinary retention, straight cath at 1999 with 520 ml urine return. pt requesting to have patterson back in, Dr. Mercedes notified and order received to insert patterson now. 16 Fr patterson inserted and 675 urine return. pt educated related to increased infection risk for patterson and need to perform excellent hygiene for prevention. pt tolerated procedure without difficulty, verbalized understanding of infection prevention
[2022-11-11 06:00] VITALS: BP 102/64; PULSE 88; RESP 18; TEMP 37; O2SAT 97
[2022-11-11] MEDS: hyDROXYzine 25 mg Capsule 50 MG PO ×3 (08:44→21:04)
[2022-11-11] MEDS: tamsulosin 0.4 mg Capsule PO ×2 (08:44→17:19)
[2022-11-11] MEDS: sennosides-docusate Tablet 2 TAB PO ×2 (08:44→17:18)
[2022-11-11] MEDS: pantoprazole DR 40 mg Tablet PO (08:45)
[2022-11-11] MEDS: gabapentin 300 mg Capsule PO ×2 (08:45→21:06)
[2022-11-11] MEDS: escitalopram 10 mg Tablet 20 MG PO (08:45)
[2022-11-11] MEDS: folic acid 1 mg Tablet PO (08:45)
[2022-11-11] MEDS: thiamine 100 mg Tablet PO (08:45)
[2022-11-11] MEDS: multivitamin therapeutic Tablet 1 TAB PO (08:46)
[2022-11-11] MEDS: polyethylene glycol 3350 Pkt 17 gm PO ×2 (08:46→17:19)
[2022-11-11] MEDS: buprenorphine-naloxone 4-1 mg Film 1 EACH SUBLINGUAL ×2 (08:46→21:04)
[2022-11-11] MEDS: sulfamethoxazole-trimeth DS 160-800 mg Tablet 1 TAB PO ×2 (09:37→21:05)
[2022-11-11] MEDS: acetaminophen 325 mg Tablet 650 MG PO (10:37)
[2022-11-11] MEDS: haloperidol 5 mg Tablet PO ×2 (11:59→21:05)
[2022-11-11] MEDS: nicotine 21 mg Patch 1 PATCH TRANSDERMA (13:46)
[2022-11-11 14:00] VITALS: BP 104/70; PULSE 94; RESP 20; TEMP 37.3; O2SAT 94
--- NOTE | 2022-11-11 17:47 | P.NPUPN_ITS ---
Subjective NPU Subjective: Sherry is a 32-year-old white female with alcohol dependence and opiate dependence along with depression admitted with suicidal ideation and command auditory hallucinations. Patient once again had a Patterson catheter placed inside of her due to urinary retention. She had reported that her mood had been better. She reported that the hallucinations had improved. She reported no side effects from her medications otherwise. She had been compliant on the unit and attending groups. She had expressed desire to inpatient drug treatment near her home. Mental Status Exam MSE Comments: This is a well-nourished well-developed white female, in hospital scrubs with improved grooming and adequate eye contact. No abnormal movements, other than mild psychomotor retardation. She was cooperative with exam in mild distress today. Speech was normal rate rhythm and volume. Mood described as okay.. Her affect remained slightly constricted. Thought process was linear and organized. Thought content: She endorsed no suicidal ideation and denied any homicidal ideation. She had endorsed no auditory or visual hallucinations today. She did not appear to be responding to internal stimuli. There is no clear evidence of delusional thinking. Attention span was variable. Her recent and remote memory appeared grossly intact. She was alert and oriented times three. Insight and judgment are limited. Impulse control is limited. Vitals/I&O/Wt Last Vital Signs Temp 99.2 F 11/11/22 14:00 Pulse 94 11/11/22 14:00 Resp 20 H 11/11/22 14:00 BP 104/70 11/11/22 14:00 Pulse Ox 94 11/11/22 14:00 O2 Del Method Room Air 11/11/22 06:00 Physical Exam Urinary Catheter Management: Patterson: Cath Placed During This Visit: yes, but has since been removed by the nurse Reason for Continuing Indwelling Catheter: Acute Urinary Retention or Obstruction Urinary Catheter Date of Insertion: 11/10/22 Urinary Catheter Time of Insertion: 22:50 Date Urinary Catheter Removed: 11/09/22 Time Urinary Catheter Discontinued: 08:35 Data NPU 10/30/22 10:00 10/30/22 10:00 A&P Assessment and plan (1) Major depressive disorder, recurrent: (2) Alcohol use disorder, severe, dependence: (3) Opioid use disorder, severe, dependence: Plan This is a 32-year-old, white female, with genetic loading for mental health and addiction issues, with a long history of mental health issues with limited mental health treatment, active drug and alcohol issues with history of significant alcohol use disorder and other addiction current active opiate addiction but reportedly 4 days sober here because of suicidal thoughts, repo rting she is open to starting medication. 1. Will discharge tommorow to inpatient rehab, with patterson catheter or straight catheter order. 2. Continue Lexapro 20 mg p.o. daily for depression, Continue risperidone 1mg for psychosis, and suboxone for opioid dependence tx. Continue Doxepin 20mg at night. 3. Encourage individual, group, and milieu therapy. 4. Continue q-15-minute checks for safety. 5. Encourage sober living treatment after discharge at the highest level of care to which she is willing to commit. Seeking inpatient substance abuse treatment-likely option near patient's home on inpatient basis. Involuntary Hold Information 96 Hour Hold: 96 Hour Involuntary Admission: No Attestations NPU Medical Necessity Statement*: Inpatient hospitalization is medically necessary and deemed to be the clinically appropriate intervention at this time. We will monitor medications and make changes as indicated. Her likely length of stay is 1-2 days. Coding Level of Care Code Acute Code for g Fwd Diagnoses Major depressive disorder, recurrent F33.9 Alcohol use disorder, severe, dependence F10.20 Opioid use disorder, severe, dependence F11.20
[2022-11-11 20:34] VITALS: BP 122/85; PULSE 108; RESP 18; TEMP 36.9; O2SAT 94
[2022-11-11] MEDS: risperiDONE 1 mg Tablet PO (21:05)
[2022-11-11] MEDS: doxepin 10 mg Capsule 20 MG PO (21:05)
[2022-11-12] MEDS: acetaminophen 325 mg Tablet 650 MG PO (02:03)
[2022-11-12] MEDS: haloperidol 5 mg Tablet PO (02:15)
[2022-11-12 06:00] VITALS: RESP 20
--- NOTE | 2022-11-12 06:39 | PC.NURSE ---
pt resting vs not collected per charge nurse resp 20
[2022-11-12] MEDS: escitalopram 10 mg Tablet 20 MG PO (08:40)
[2022-11-12] MEDS: buprenorphine-naloxone 4-1 mg Film 1 EACH SUBLINGUAL (08:40)
[2022-11-12] MEDS: sennosides-docusate Tablet 2 TAB PO (08:40)
[2022-11-12] MEDS: gabapentin 300 mg Capsule PO (08:40)
[2022-11-12] MEDS: thiamine 100 mg Tablet PO (08:40)
[2022-11-12] MEDS: tamsulosin 0.4 mg Capsule PO (08:40)
[2022-11-12] MEDS: hyDROXYzine 25 mg Capsule 50 MG PO (08:40)
[2022-11-12] MEDS: folic acid 1 mg Tablet PO (08:40)
[2022-11-12] MEDS: multivitamin therapeutic Tablet 1 TAB PO (08:40)
[2022-11-12] MEDS: polyethylene glycol 3350 Pkt 17 gm PO (08:40)
[2022-11-12] MEDS: pantoprazole DR 40 mg Tablet PO (08:40)
--- NOTE | 2022-11-12 08:41 | PC.NURSE ---
prn Vistaril 50 mg given po per pt c/o stated anxiety, no outward s/s of anxiety noted
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
[2022-11-12 08:51] VITALS: RESP 20
== END 2022-11-12 09:14 | disposition home or self-care (01) | DRG 885 ==
PROVIDERS: Hospitalist; Internal Medicine; Admitting Provider Psychiatry & Neurology Psychiatry; Visit Provider Psychiatry & Neurology Psychiatry
DX: F33.9 Major depressive disorder, recurrent, unspecified (principal); R45.851 Suicidal ideations; R44.0 Auditory hallucinations; F11.20 Opioid dependence, uncomplicated; R44.2 Other hallucinations; Z81.8 Family history of other mental and behavioral disorders; Z81.1 Family history of alcohol abuse and dependence; F17.290 Nicotine dependence, other tobacco product, uncomplicated; Z91.148 Patient's other noncompliance with medication regimen for other reason; R33.9 Retention of urine, unspecified; K59.00 Constipation, unspecified; F10.20 Alcohol dependence, uncomplicated
CPT/HCPCS: 36415; 51702; 51798; 74018; 80053; 81001; 81003; 81025; 82150; 83690; 85007; 85027; 87086; 97150; 97165; 99239; J0573; Q0162